=== PATIENT | female | born 1935 | race Caucasian/White ===

== ENCOUNTER → 2017-03-25 | Outpatient (CLI) | payer MEDICARE ==
--- NOTE | 2017-03-25 23:00 | WWHP ---
[facility] - HISTORY AND PHYSICAL DATE OF SERVICE: 03/25/2017 CHIEF COMPLAINT: Patient is here for her routine gynecologic exam and mammogram. HPI: This is an 81-year-old, G 3, P 3, with an LMP of 1987. She is status post vaginal hysterectomy for benign reasons. She continues to use low-dose ERT for hot flashes. She also states they help her to sleep. She is otherwise without gynecologic complaints. PAST MEDICAL HISTORY: Chronic hypertension, arthritis and mildly elevated cholesterol. MEDICATIONS: 1. Nifedipine 30 mg daily. 2. Estradiol 0.5 mg one 3 times weekly. 3. Hydrochlorothiazide 25 mg daily. 4. Calcium supplement with vitamin D3 600 mg b.i.d. 5. Glucosamine 1500 mg daily. 6. Fish oil supplement daily. 7. Multivitamin 1 daily. ALLERGIES: TYLENOL #3 AND ADHESIVE TAPES. The past surgical and [employer] histories are unchanged from the 2015 H&P. SOCIAL HISTORY: She denies tobacco and drug use and has 0-2 alcohol containing drinks per week. She is but is not sexually active. FAMILY HISTORY: Sister was diagnosed with breast cancer. She also has a paternal aunt and paternal grandmother who had breast cancer. Brother had colon cancer. Father had diabetes and skin cancer and heart disease. REVIEW OF SYSTEMS: Weight has been stable. She denies respiratory, cardiac or GI problems. She denies maltreatment or falling. : She denies any significant problems with urinary leakage but does get up 2 times each night to urinate. PHYSICAL EXAM: Blood pressure 129/72, height 5 feet 2.5 inches, weight 121 pounds. Temperature 98, pulse 87, this is a well-developed, well-nourished, white female, who is alert and oriented times three. In no acute distress. HEENT: Within normal limits. NECK: Supple without mass or thyromegaly. Chest. LUNGS: Clear to auscultation. HEART: Regular rate, rhythm. Breasts are without mass or discharge. Axillary exam is negative for adenopathy. Back negative for CVA tenderness. ABDOMEN: Soft, nontender, without palpable masses. Pelvic exam external genitalia reveals [id number] atrophy without lesions. Vagina reveals [id number]-rd-[id number] atrophy without lesions. There is no evidence of prolapse. Bimanual exam is negative for mass or tenderness. Rectovaginal exam is negative for mass or tenderness and is negative for occult blood. EXTREMITIES: Nontender. IMPRESSION: 1. 81-year-old, menopausal female, who is status post vaginal hysterectomy for benign reasons with normal gynecologic exam. 2. The patient is on low-dose ERT for vasomotor symptoms. PLAN: 1. Pap smears have been discontinued. 2. Self breast examination was discussed. 3. Mammogram will be done today. 4. We again had a long discussion regarding the ERT and the increased risk for stroke and blood clots. I have stressed the importance of weaning off of this as soon as possible. She states she will try to wean off of this. 5. Screening colonoscopy was recommended since it has been more than 10 years since her last one. She states she will see Dr. Lorenzo for this. 6. Osteoporosis prevention was discussed. She did have a normal bone density test done last year and we will plan on repeating this in approximately 2 years ago. 7. She states she does get flu shots in the fall and will do this when it is available. 8. She will return in one year. MMODL / IJN: [id number] /
--- NOTE | 2017-03-26 10:45 | MM ---
Reason for exam: screening (asymptomatic). Last mammogram was performed 1 year ago. History: Patient is postmenopausal and has history of other cancer at age 74. Family history of breast cancer in paternal grandmother and breast cancer in paternal aunt. Benign excisional biopsy of the left breast. Taking estrogen for 20 years 7 months beginning at age 53. Taking progesterone for 20 years 7 months beginning at age 53. Physical Findings: A clinical breast exam by your physician is recommended on an annual basis and results should be correlated with mammographic findings. MG 3D Screening Mammo W/Cad Bilateral CC and MLO view(s) were taken. Prior study comparison: March 19, 2016, bilateral MG 3d screening mammo w/cad. February 22, 2015, bilateral MG screening mammo w CAD. There are scattered fibroglandular densities. Stable benign calcifications. There is chronic nodularity in the left breast. No significant changes when compared with prior studies. ASSESSMENT: Benign, BI-RAD 2 RECOMMENDATION: Routine screening mammogram of both breasts in 1 year.
== END | disposition home or self-care (01) ==
LOC: WWCWWP 09:15
PROVIDERS: ATTEND Obstetrics & Gynecology
DX: Z12.31 Encounter for screening mammogram for malignant neoplasm of breast (principal)
CPT/HCPCS: 77063; G0202

== ENCOUNTER → 2018-04-01 | Outpatient (CLI) | payer MEDICARE ==
[2018-04-01 11:10] VITALS: BP 161/71; TEMP 96.6; BMI 21.9
--- NOTE | 2018-04-01 11:49 | P.HPOB ---
History of Present Illness H&P Date: 04/01/18 Chief Complaint: The patient is here for her routine gynecologic exam and mammogram. This is an 82-year-old G3 PIII with an LMP of 1987. The patient is status post vaginal hysterectomy for benign reasons. She has weaned off of ERT during the past year. She stopped altogether in July, but because of hot flashes, she used low-dose ERT again for 5 months. She stops and has been off of ERT since January. She has been having some hot flashes and also notices her skin and hair seem primer expeditor and drier. Review of Systems Weight has been stable. She denies respiratory, cardiac and G.I. problems. She denies maltreatment or problems with falling. : she denies any significant problems with urinary leakage. Past Medical History Past Medical History: Hyperlipidemia, Hypertension Additional Past Medical History / Comment(s): Arthritis. PAST [employer] HISTORY: She has no history of STDs. She is status post vaginal hysterectomy for prolapse. 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 Colonoscopy 2005. Past Psychological History: No Psychological Hx Reported Smoking Status: Never smoker Past Alcohol Use History: Occasional (0-1 per week) Past Drug Use History: None Reported Additional History: She is and is not sexually active. - Past Family History Sister(s) Family Medical History: Cancer (Breast) Father Family Medical History: Cancer (Skin), Diabetes Mellitus Additional Family Medical History / Comment(s): Heart disease. Paternal aunt and paternal grandmother had breast cancer. Brother(s) Family Medical History: Cancer (Colon cancer) Medications and Allergies Home Medications Medication Instructions Recorded Confirmed Type Calcium Carbonate [Calcium] PO BID 04/01/18 History Glucosamine Sulfate 1,500 PO DAILY 04/01/18 History Hydrochlorothiazide PO DAILY 04/01/18 History NIFEdipine [Procardia XL] PO DAILY 04/01/18 History Allergies Allergy/AdvReac Type Severity Reaction Status Date / Time acetaminophen AdvReac Severe Rash/Hives Unverified 04/01/18 11:05 [From Tylenol-Codeine #3] codeine AdvReac Severe Rash/Hives Unverified 04/01/18 11:05 [From Tylenol-Codeine #3] Exam Vital Signs Temp BP 04/01/18 11:07 96.6 F L 161/71 Intake and Output 03/31/18 04/01/18 04/01/18 22:59 06:59 14:59 Other: Weight 54.431 kg Height 5'2", BMI 21.9, pulse 79. This is a well-developed well-nourished white female who is alert and oriented times 3 in no acute distress. HEENT: Within normal limits. NECK: Supple without mass or thyromegaly. CHEST AND LUNGS: Clear to auscultation. HEART: Regular rate and rhythm. BREASTS: Are without mass or discharge. AXILLARY EXAM: Negative for adenopathy. BACK: Negative for CVA tenderness. ABDOMEN: Soft, nontender, without palpable masses. PELVIC EXAM: External genitalia appears normal with mild atrophy. Vagina appears normal mild atrophy. There is no evidence of prolapse. Bimanual examination is negative for mass or tenderness. RECTAL EXAM: Rectovaginal exam is negative for mass or tenderness and is negative for occult blood. EXTREMITIES: Nontender. IMPRESSION: 1. 82 year old female status post vaginal hysterectomy for benign reasons with normal gynecologic exam. 2. The patient has recently weaned off of ERT and has mild vasomotor symptoms. PLAN: 1. Pap smears have been discontinued. 2. Self breast awareness was discussed with the patient. 3. Screening Mammogram will be done today. 4. Osteoporosis prevention was discussed. She had a normal bone density test on 02/22/2015. Will plan on repeating this approximately in the year 2020. 5. She plans to get a flu shot in the near future. 6. I have recommended screening colonoscopy since it has been about 12 years since her last one. She will talk to Dr. Oliveira about this. 7. She will return in one year.
--- NOTE | 2018-04-02 15:09 | MM ---
Reason for exam: screening (asymptomatic). Last mammogram was performed 1 year ago. History: Patient is postmenopausal and has history of other cancer at age 74. Family history of breast cancer in paternal grandmother and breast cancer in paternal aunt. Benign excisional biopsy of the left breast. Taking estrogen for 20 years 7 months beginning at age 53. Taking progesterone for 20 years 7 months beginning at age 53. Physical Findings: A clinical breast exam by your physician is recommended on an annual basis and results should be correlated with mammographic findings. MG 3D Screening Mammo W/Cad Bilateral CC and MLO view(s) were taken. Prior study comparison: March 25, 2017, bilateral MG 3d screening mammo w/cad. March 19, 2016, bilateral MG 3d screening mammo w/cad. There are scattered fibroglandular densities. There is no discrete abnormality. No significant changes when compared with prior studies. ASSESSMENT: Negative, BI-RAD 1 RECOMMENDATION: Routine screening mammogram of both breasts in 1 year.
== END ==
LOC: WWCWWP 10:30
PROVIDERS: ATTEND Obstetrics & Gynecology
DX: Z12.31 Encounter for screening mammogram for malignant neoplasm of breast (principal)
CPT/HCPCS: 77063; 77067

== ENCOUNTER → 2018-04-20 | Outpatient (CLI) | payer MEDICARE ==
[2018-04-20 08:23] LABS: Basophils # (A) 0.1 k/uL (0-0.2); Basophils % (A) 1 %; Eosinophils # (A) 0.2 k/uL (0-0.7); Eosinophils % (A) 3 %; HCT 39.1 % (34.0-46.0); HGB 13.1 gm/dL (11.4-16.0); Lymphocytes # (A) 2.2 k/uL (1.0-4.8); Lymphocytes % (A) 38 %; MCH 30.3 pg (25.0-35.0); MCHC 33.4 g/dL (31.0-37.0); MCV 90.5 fL (80.0-100.0); Mean Platelet Volume 6.4; Monocytes # (A) 0.4 k/uL (0-1.0); Monocytes % (A) 7 %; Neutrophils # (A) 2.8 k/uL (1.3-7.7); Neutrophils % (A) 49 %; Platelet Count 246 k/uL (150-450); RBC 4.32 m/uL (3.80-5.40); RDW 14.1 % (11.5-15.5); WBC 5.6 k/uL (3.8-10.6)
[2018-04-20 09:00] LABS: ALT 21 U/L (9-52); AST 32 U/L (14-36); Albumin 4.6 g/dL (3.5-5.0); Alkaline Phosphatase 66 U/L (38-126); Anion Gap 10 mmol/L; Blood Urea Nitrogen 13 mg/dL (7-17); Calcium 9.9 mg/dL (8.4-10.2); Carbon Dioxide 29 mmol/L (22-30); Chloride 102 mmol/L (98-107); Cholesterol 215 mg/dL (<200); Glucose 89 mg/dL (74-99); HDL Cholesterol 105 mg/dL (40-60); LDL Cholesterol,Calculated 87 mg/dL (0-99); Potassium 3.7 mmol/L (3.5-5.1); Sodium 141 mmol/L (137-145); Total Bilirubin 0.5 mg/dL (0.2-1.3); Total Protein 8.1 g/dL (6.3-8.2); Triglycerides 114 mg/dL (<150)
[2018-04-20 10:57] LABS: Appearance,Urine Clear (Clear); Bilirubin,Urine Negative (Negative); Blood,Urine Negative (Negative); Color,Urine Yellow; Glucose,Urine (UA) Negative (Negative); Ketones,Urine Negative (Negative); Leukocyte Esterase,Urine Small (Negative); Mucus,Urine Rare /hpf; Nitrite,Urine Negative (Negative); Protein,Urine Negative (Negative); RBC,Urine <1 /hpf (0-5); Specific Gravity,Urine 1.009 (1.001-1.035); Squamous Epithelial Cell,Urine 1 /hpf (0-4); Urobilinogen,Urine <2.0 mg/dL (<2.0); WBC,Urine 1 /hpf (0-5)
== END | disposition home or self-care (01) ==
LOC: LABWHC1 07:46
PROVIDERS: ATTEND Internal Medicine
DX: I10 Essential (primary) hypertension (principal); E55.9 Vitamin D deficiency, unspecified
CPT/HCPCS: 36415; 80053; 80061; 81001; 82306; 85025

== ENCOUNTER 2018-08-01 12:28 | Observation (INO) | payer MEDICARE ==
--- NOTE | 2018-08-01 12:52 | ED ---
Chest Pain HPI - General Chief Complaint: Chest Pain Stated Complaint: abn EKG Time Seen by Provider: 08/01/18 12:32 Source: patient Mode of arrival: ambulatory Limitations: no limitations - History of Present Illness Initial Comments: A 83-year-old female past medical history of hypertension, HLD and family history of coronary artery disease presenting today for chief complaint of chest pain. Patient states that at 8:00 this morning she had a pain in her chest that went from right side to left and into the back that lasted for about 2 minutes. She states at that time she chewed a 325 mg aspirin and presented to the [facility] a few hours later. She states since the symptoms have subsided she has not experienced additional symptoms. Patient did mention she was diaphoretic at the time of chest pain. Patient denies any dyspnea, dyspnea on exertion nausea, vomiting, bowel pain, epigastric pain, dizziness, palpitations, leg swelling, calf pain, recent travel, hemoptysis, history of pulmonary embolus him, history of valvular disease, or experiencing these symptoms in the past. Pt denies smoking history. No recent surgical history. Pt states that at the clinic and EKG was obtained. She states they did not notice any EKG changes, but given history, age and RF that instructed patient to present to the emergency department for evaluation. Upon arrival pt is well appearing, no signs of acute distress. No respiratory distress. Pt VS revealed elevated BP reading remainder of VS unremarkable. (-) Levign sign. Pt denies any current symptoms. - Related Data Home Medications Medication Instructions Recorded Confirmed Calcium Carbonate [Calcium] PO BID 04/01/18 Glucosamine Sulfate 1,500 PO DAILY 04/01/18 Hydrochlorothiazide PO DAILY 04/01/18 NIFEdipine [Procardia XL] PO DAILY 04/01/18 Allergies Allergy/AdvReac Type Severity Reaction Status Date / Time acetaminophen AdvReac Severe Rash/Hives Unverified 08/01/18 12:37 [From Tylenol-Codeine #3] codeine AdvReac Severe Rash/Hives Unverified 08/01/18 12:37 [From Tylenol-Codeine #3] Review of Systems ROS Statement: Those systems with pertinent positive or pertinent negative responses have been documented in the HPI. ROS Other: All systems not noted in ROS Statement are negative. EKG Findings - EKG Comments: EKG Findings:: A 12-lead EKG was performed and shows the following: Rate is 83bpm, and rhythm is normal sinus. There are normal QRS complexes and normal R- wave progression. ST segments have no elevation or depression, and MS segments appear normal. Interpretted by myself and Dr. Silva. Second EK. A 12 -lead EKG was performed and shows the following: Rate is 83bpm, and rhythm is normal sinus. There are normal QRS complexes and normal R-wave progression. ST segments have no elevation or depression, and MS segments appear normal. 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 Colonoscopy 2005. Past Psychological History: No Psychological Hx Reported Smoking Status: Never smoker Past Alcohol Use History: Occasional Past Drug Use History: None Reported - Past Family History Sister(s) Family Medical History: Cancer (Breast) Father Family Medical History: Cancer (Skin), Diabetes Mellitus Additional Family Medical History / Comment(s): Heart disease. Paternal aunt and paternal grandmother had breast cancer. Brother(s) Family Medical History: Cancer (Colon cancer) General Exam - General Exam Comments Initial Comments: General: The patient is awake and alert, in no distress, and does not appear acutely ill. Eye: +2 mm pupils are equal, round and reactive to light, extra-ocular movements are intact. No nystagmus. There is normal conjunctiva bilaterally. No signs of icterus. Ears, nose, mouth and throat: There are moist mucous membranes and no oral lesions. Oropharynx nonerythematous. Neck: The neck is supple, there is no tenderness or JVD. Cardiovascular: There is a regular rate and rhythm. No audible murmur, rub or gallop is appreciated. Respiratory: Lungs are clear to auscultation, respirations are non-labored, breath sounds are equal. No wheezes, stridor, rales, or rhonchi. Gastrointestinal: Soft, non-distended, non-tender abdomen without masses or organomegaly noted. Epigastric pain. There is no rebound or guarding present. No CVA tenderness. Bowel sounds are unremarkable. Musculoskeletal: Normal ROM, no tenderness. Strength 5/5. Sensation intact. Radial and DP pulses equal bilaterally 2+. Neurological: A&O x 3. CN II-XII intact, There are no obvious motor or sensory deficits. Coordination appears grossly intact. Speech is normal. Skin: Skin is warm and dry and no rashes or lesions are noted. No lower extremity edema. Psychiatric: Cooperative, appropriate mood & affect, normal judgment. Limitations: no limitations Course Vital Signs 08/01/18 08/01/18 08/01/18 12:34 13:00 13:30 Temperature 97.8 F Pulse Rate 73 88 84 Respiratory 18 15 16 Rate Blood Pressure 168/68 158/87 153/77 O2 Sat by Pulse 99 98 98 Oximetry Chest Pain MDM - MDM 83yo with 2 minutes of CP and diaphoresis this morning that radiated toward back. No currents symptoms. Initial EKG WNL. No ST elevation/depression, intervals WNL and no axis deviation. With cc of upper back pain accompanying chest pain aortic dissection on ddx along with ACS- CTA obtained. CXR within normal limits, without cardiomegaly,evidence of pleural effusion, or focal consolidations. No abdominal pain on exam. Laboratory values within acceptable limits. CTA (-) for PE or dissection, acute cardiopulmonary process. Heart score 4-5. At this time given HEART score and chest pain concerning for possible underlying cardiac etiology I feel pt should be admitted for serial troponins in observation on telemetry. Pt agreedable with plan and admission. All questions discussed and answered to the best of my ability, I did discussed findings with patient. Attending provider Dr. Silva spoke with admitting provider Dr. Cruz. pt remains asymptomatic and well appearing. transferred to floor in stable condition. - Wells Criteria Clinical Symptoms of DVT: (0) No No Alternative Diagnosis: (0) No Immobilization of Surgery in Previous 4 Weeks: (0) No Previous DVT/PE: (0) No Hemoptysis: (0) No Malignancy: (1.0) Yes (skin cancer, with complete removal) - SUMMER Score Age > 65: (1) Yes 3 or more CAD Risk Factors: (1) Yes Known CAD with more than 50% Stenosis: (0) No Aspirin use within the Past 7 Days: (1) Yes ST Deviation Greater than 0.5mm: (0) No Disposition Clinical Impression: Chest pain Disposition: ADMITTED IP TO THIS HOSP Condition: Good Instructions: Chest Pain (ED) Is patient prescribed a controlled substance at d/c from ED?: No Referrals: Adam Oliveira MD [Primary Care Provider] - 1-2 days Time of Disposition: 14:15 Decision to Admit Reason: Admit from EC Decision Date: 08/01/18 Decision Time: 14:16
[2018-08-01 13:12] LABS: Basophils % (A) 1 %; Eosinophils # (A) 0.1 k/uL (0-0.7); Eosinophils % (A) 1 %; HCT 37.9 % (34.0-46.0); HGB 12.9 gm/dL (11.4-16.0); Lymphocytes % (A) 30 %; MCH 31.4 pg (25.0-35.0); MCHC 34.2 g/dL (31.0-37.0); MCV 91.8 fL (80.0-100.0); Mean Platelet Volume 6.7; Monocytes # (A) 0.4 k/uL (0-1.0); Monocytes % (A) 6 %; Neutrophils # (A) 3.8 k/uL (1.3-7.7); Neutrophils % (A) 59 %; Platelet Count 256 k/uL (150-450); RBC 4.13 m/uL (3.80-5.40); RDW 13.4 % (11.5-15.5); WBC 6.5 k/uL (3.8-10.6)
--- NOTE | 2018-08-01 13:19 | XR ---
EXAMINATION TYPE: XR chest 2V DATE OF EXAM: 08/01/2018 HISTORY: Chest Pain. REFERENCE: NONE. FINDINGS: The lungs are clear. Pleural spaces are clear. The heart is not enlarged. IMPRESSION: NO ACUTE CARDIOPULMONARY ABNORMALITY.
[2018-08-01 13:23] LABS: INR 0.9 (<1.2); Partial Thromboplastin Time 25.9 sec (22.0-30.0); Prothrombin Time 9.6 sec (9.0-12.0)
[2018-08-01 13:25] LABS: ALT 28 U/L (9-52); AST 34 U/L (14-36); Albumin 4.6 g/dL (3.5-5.0); Alkaline Phosphatase 66 U/L (38-126); Anion Gap 7 mmol/L; Blood Urea Nitrogen 21 mg/dL (7-17); Calcium 10.6 mg/dL (8.4-10.2); Carbon Dioxide 29 mmol/L (22-30); Chloride 102 mmol/L (98-107); Glucose 94 mg/dL (74-99); Magnesium 1.9 mg/dL (1.6-2.3); Potassium 3.9 mmol/L (3.5-5.1); Sodium 138 mmol/L (137-145); Total Bilirubin 0.8 mg/dL (0.2-1.3); Total Protein 7.9 g/dL (6.3-8.2)
[2018-08-01 13:46] LABS: Creatine Kinase 70 U/L (30-135)
[2018-08-01 13:59] LABS: Creatine Kinase MB 0.6 ng/mL (0.0-2.4); Troponin I <0.012 ng/mL (0.000-0.034)
--- NOTE | 2018-08-01 13:59 | CT ---
EXAMINATION TYPE: CT angio chest DATE OF EXAM: 08/01/2018 1:49 PM COMPARISON: None. HISTORY: Chest pain radiating to the back CT DLP: 188.10 mGycm Automated exposure control for dose reduction was used. CONTRAST: CTA scan of the thorax is performed with IV Contrast, patient injected with 100 mL of Isovue 370, pul monary embolism protocol. . FINDINGS: There is apical scarring present bilaterally. The lungs are otherwise clear. There is some shotty axillary adenopathy. There is no significant internal mammary or mediastinal kodi nopathy. There is a questionable 12 mm lymph node in the right hilum. There is no evidence of pulmonary embolus. The aorta is normal in caliber without evidence of dissection. There is no pleural or pericardial fluid. The heart is not enlarged. Visualized portions of the upper abdomen are unremarkable. There is minimal hypertrophic spondylosis within the spine. IMPRESSION: 1. THIS EXAMINATION IS NEGATIVE FOR PULMONARY EMBOLUS. 2. MINIMAL DEGENERATIVE CHANGE WITHIN THE SPINE.
[2018-08-01] MEDS ORDERED: SODIUM CHLORIDE 0.9% 1,000 ML IV SCH (14:30)
[2018-08-01] MEDS ORDERED: ENOXAPARIN 40 MG/0.4 ML SYRINGE SQ SCH (23:00)
--- NOTE | 2018-08-02 00:34 | HP ---
HISTORY AND PHYSICAL DATE OF ADMISSION: 08/01/2018. DATE OF SERVICE: 08/01/2018. PRESENTING COMPLAINT: Chest pressure. HISTORY OF PRESENTING COMPLAINT: This is a very pleasant 83-year-old patient of Dr. Adam Oliveira. Chronic stable medical conditions include hypertension, hyperlipidemia, osteoarthritis. This morning during breakfast her leg started aching and she just kind of felt warm. Then she felt a pressure across the chest and back. She started perspiring and became clammy. There was no dizziness. No lightheadedness. She did not feel good and told her to call 911. She presented to the ER. Initial EKG was unremarkable. Troponin was negative. The patient is feeling better. Pulmonary embolism was ruled out. She was admitted for further cardiac workup. Feeling better when I saw her. REVIEW OF SYSTEMS: CONSTITUTIONAL: Tired. HEENT: None. CARDIOVASCULAR: As above GASTROINTESTINAL: None. MUSCULOSKELETAL: Pain in different joints. DERMATOLOGICAL, HEMATOLOGIC, LYMPHATIC: None. PSYCHIATRY: None. NEUROLOGICAL: None. MUSCULOSKELETAL: Charley horses. PAST MEDICAL HISTORY: Hyperlipidemia, hypertension, osteoarthritis. PAST SURGICAL HISTORY: Hysterectomy, neurofibroma removed for the back in 2006. SOCIAL HISTORY: No smoking. Alcohol occasionally. . FAMILY HISTORY: Heart disease and breast cancer. HOME MEDICATIONS: 1. Procardia XL 30 mg a day. 2. Hydrochlorothiazide 25 mg a day. 3. Calcium 600 mg b.i.d. 4. Glucosamine sulfate. ALLERGY: TYLENOL 3. PHYSICAL EXAMINATION: Temperature 98.2, pulse 87, respirations 15, blood pressure 108/56, pulse ox 97% on room air. GENERAL APPEARANCE: Thin built, sitting up, comfortable. EYES: Pupils equal. Conjunctivae normal. HEENT: External appearance of nose and ears normal. NECK: Supple. JVD not raised. Mass not palpable. Respiratory effort normal. LUNGS: Fair air entry. CARDIOVASCULAR: First and second sounds normal. No edema. ABDOMEN: Soft, nontender. Liver and spleen not palpable. LYMPHATIC: No lymph nodes palpable in the neck, axillae, or groin. PSYCHIATRY: Alert and oriented x3. Mood and affect normal. NEUROLOGIC: Pupils equal. Cranial nerves grossly intact. Power and sensation grossly intact. MUSCULOSKELETAL: Evidence of osteoarthritis, especially in the hands. INVESTIGATIONS: White count 6.5, hemoglobin 12.9, potassium 3.9. Troponin less than 0.012 x 2. EKG tracing personally reviewed by me, shows normal sinus rhythm, no ST-segment changes. Chest x-ray film personally reviewed by me shows no infiltrates. ASSESSMENT: 1. This patient presented with chest pain with some cardiac manifestations. Patient's cardiac risk factors include hypertension, hyperlipidemia, and her age. Initial troponins have been negative. 2. Essential hypertension. 3. Primary osteoarthritis. PLAN: Serial cardiac enzymes in place. The patient is on aspirin. Currently feeling better. Cardiology was consulted. The patient will need a stress test stress. Care was discussed with the patient. Questions were answered. MMODL / IJN: [id number] /
[2018-08-02 04:16] VITALS: RESP 16
[2018-08-02] MEDS ORDERED: ASPIRIN 81 MG PO SCH (09:00)
[2018-08-02] MEDS ORDERED: HYDROCHLOROTHIAZIDE 25 MG TAB PO SCH (09:00)
[2018-08-02] MEDS ORDERED: NIFEdipine XL 30 MG TAB.ER.24 PO SCH (09:00)
--- NOTE | 2018-08-02 10:31 | P.CRDCN ---
History of Present Illness Consult date: 08/02/18 Chief complaint: Chest pain History of present illness: This is a pleasant 83-year-old female patient with a past medical history significant for hypertension and dyslipidemia who presented to the hospital complaining of chest discomfort. The patient was in her usual state of health until yesterday morning when she was sitting eating her breakfast and started experiencing discomfort in the chest, as a pressure, without any radiation to the arm or neck or shoulders, but it was associated with clammy feeling and sweating, and lasted for about 2 minutes only. Since then the patient has been chest pain-free. She has been chest pain-free during her hospitalization. The patient is not aware of any prior history of coronary artery disease and she never seen a offal separator in the past. She does have hypertension and dyslipidemia. She does not smoke. The EKG showed sinus rhythm without any ST or T-wave abnormalities. The cardiac enzymes were checked and came in to be unremarkable. Eating her risk factors as well as her age, I did recommend proceeding with a stress test to rule out any severe underlying coronary artery disease. The patient does not want to stay to tomorrow to have the stress test done so I am going to discharge the patient home and I will follow-up with her in the office as an outpatient and schedule a stress test as an outpatient. 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 Colonoscopy 2005. Past Anesthesia/Blood Transfusion Reactions: No Reported Reaction Additional Past Anesthesia/Blood Transfusion Reaction / Comment(s): pt states she has never had a blood transfusion. Past Psychological History: No Psychological Hx Reported Smoking Status: Never smoker Past Alcohol Use History: Occasional Past Drug Use History: None Reported - Past Family History Sister(s) Family Medical History: Cancer Father Family Medical History: Cancer, Diabetes Mellitus Additional Family Medical History / Comment(s): Heart disease. Paternal aunt and paternal grandmother had breast cancer. Brother(s) Family Medical History: Cancer Medications and Allergies Home Medications Medication Instructions Recorded Confirmed Type Calcium Carbonate [Calcium] 600 mg PO BID 04/01/18 08/01/18 History Glucosamine Sulfate 1,500 PO DAILY 04/01/18 History Hydrochlorothiazide 25 mg PO DAILY 04/01/18 08/01/18 History NIFEdipine [Procardia XL] 30 mg PO DAILY 04/01/18 08/01/18 History Allergies Allergy/AdvReac Type Severity Reaction Status Date / Time acetaminophen AdvReac Severe Rash/Hives Verified 08/01/18 14:45 [From Tylenol-Codeine #3] codeine AdvReac Severe Rash/Hives Verified 08/01/18 14:45 [From Tylenol-Codeine #3] Physical Exam Vitals: Vital Signs Temp Pulse Pulse Pulse Resp BP BP 08/02/18 08:00 97.9 F 71 16 119/64 08/02/18 04:00 97.6 F 75 16 145/76 08/01/18 23:33 14 08/01/18 23:26 98.0 F 83 14 146/75 08/01/18 20:00 15 08/01/18 19:16 98.2 F 80 15 118/66 08/01/18 15:00 98.1 F 100 16 158/76 08/01/18 14:30 98.2 F 73 18 143/72 08/01/18 14:00 77 16 153/77 08/01/18 13:30 84 16 153/77 08/01/18 13:00 88 15 158/87 08/01/18 12:34 97.8 F 73 18 168/68 Pulse Ox 08/02/18 08:00 100 08/02/18 04:00 97 08/01/18 23:33 08/01/18 23:26 98 08/01/18 20:00 08/01/18 19:16 97 08/01/18 15:00 97 08/01/18 14:30 97 08/01/18 14:00 97 08/01/18 13:30 98 08/01/18 13:00 98 08/01/18 12:34 99 Intake and Output 08/01/18 08/02/18 08/02/18 22:59 06:59 14:59 Other: Voiding Method Toilet Toilet Toilet # Voids 1 1 Weight 54.431 kg - Constitutional General appearance: no acute distress - Respiratory Respiratory: bilateral: CTA - Cardiovascular Rhythm: regular Heart sounds: normal: S1, S2 Abnormal Heart Sounds: systolic murmur Results 08/01/18 13:02 08/01/18 13:02 Cardiac Enzymes 08/01/18 08/01/18 08/01/18 Range/Units 13:02 13:02 19:00 AST 34 (14-36) U/L CK-MB (CK-2) 0.6 (0.0-2.4) ng/mL Troponin I <0.012 <0.012 (0.000-0.034) ng/mL 08/02/18 Range/Units 01:33 AST (14-36) U/L CK-MB (CK-2) (0.0-2.4) ng/mL Troponin I <0.012 (0.000-0.034) ng/mL Coagulation 08/01/18 Range/Units 13:02 PT 9.6 (9.0-12.0) sec APTT 25.9 (22.0-30.0) sec CBC 08/01/18 Range/Units 13:02 WBC 6.5 (3.8-10.6) k/uL RBC 4.13 (3.80-5.40) m/uL Hgb 12.9 (11.4-16.0) gm/dL Hct 37.9 (34.0-46.0) % Plt Count 256 (150-450) k/uL Comprehensive Metabolic Panel 08/01/18 Range/Units 13:02 Sodium 138 (137-145) mmol/L Potassium 3.9 (3.5-5.1) mmol/L Chloride 102 (98-107) mmol/L Carbon Dioxide 29 (22-30) mmol/L BUN 21 H (7-17) mg/dL Creatinine 0.62 (0.52-1.04) mg/dL Glucose 94 (74-99) mg/dL Calcium 10.6 H (8.4-10.2) mg/dL AST 34 (14-36) U/L ALT 28 (9-52) U/L Alkaline Phosphatase 66 (38-126) U/L Total Protein 7.9 (6.3-8.2) g/dL Albumin 4.6 (3.5-5.0) g/dL Current Medications Generic Name Dose Route Start Last Admin Trade Name Freq PRN Reason Stop Dose Admin Aspirin 81 mg 08/02/18 09:00 Aspirin PO DAILY RODERICK Enoxaparin Sodium 40 mg 08/01/18 23:00 08/01/18 23:38 Lovenox SQ 40 mg Q24H RODERICK Administration Hydrochlorothiazide 25 mg 08/02/18 09:00 Hydrodiuril PO DAILY RODERICK Sodium Chloride 1,000 mls @ 50 mls/hr 08/01/18 14:30 08/01/18 19:27 Saline 0.9% IV Not Given .Q20H RODERICK Nifedipine 30 mg 08/02/18 09:00 Procardia Xl PO DAILY RODERICK Intake and Output 08/01/18 08/02/18 08/02/18 22:59 06:59 14:59 Other: Voiding Method Toilet Toilet Toilet # Voids 1 1 Weight 54.431 kg 08/01/18 13:02 08/01/18 13:02 Assessment and Plan Assessment: Assessment #1 chest discomfort. #2 hypertension #3 dyslipidemia Plan #1 the patient was ruled out for acute coronary event #2 currently she is chest pain-free #3 I would get the patient up and around, if she is chest pain-free, she might be able to be discharged home and I will follow-up with her in the office as an outpatient Thank you for allowing us participate in her care and we will continue following up with the patient as an outpatient
[2018-08-02 11:43] VITALS: BP 134/74; PULSE 85; TEMP 98
--- NOTE | 2018-08-03 01:11 | DS ---
DISCHARGE SUMMARY DATE OF ADMISSION: 08/01/2018 DATE OF DISCHARGE: 08/02/2018 FINAL DIAGNOSES: 1. Anterior chest wall pain, possible angina. 2. Essential hypertension. 3. Primary osteoarthritis. HOSPITAL COURSE: This patient with cardiac risk factors, presented with chest pain, troponins were negative. EKG is unremarkable. The patient is seen by Dr. Sandra, okayed the patient to be discharged. He will see the patient outpatient for a stress test. The patient otherwise has been symptom-free. Up and about. The patient was negative for PE. PHYSICAL EXAMINATION: Temperature 98, pulse 75, respirations 16, blood pressure 134/74. Pulse ox 97% on room air. Lungs are clear. Cardiovascular: First and second sounds normal. Troponin x3 negative. DISCHARGE MEDICATIONS: 1. Aspirin 81 mg a day. 2. Lopressor 12.5 p.o. b.i.d. new medication. 3. Nitrostat 0.4 sublingual q.5 p.r.n. new medication. 4. Discontinued is hydrochlorothiazide, Procardia XL. Follow with Dr. Sandra in 1 week for a stress test. Follow up with Dr. Adam Oliveira in [address] Oliveira. MMEMILIOL / IJN: [id number] /
== END 2018-08-02 15:55 | disposition home or self-care (01) ==
LOC: EC 12:28 → 1SOBS 14:43
PROVIDERS: ADMIT Hospitalist; ATTEND Hospitalist
DX: R07.89 Other chest pain (principal); M54.6 Pain in thoracic spine; M79.606 Pain in leg, unspecified; R23.1 Pallor; M19.042 Primary osteoarthritis, left hand; M19.041 Primary osteoarthritis, right hand; R61 Generalized hyperhidrosis; R01.1 Cardiac murmur, unspecified; R94.31 Abnormal electrocardiogram [ECG] [EKG]; I10 Essential (primary) hypertension; E78.5 Hyperlipidemia, unspecified; M19.91 Primary osteoarthritis, unspecified site; Z79.899 Other long term (current) drug therapy; Z88.5 Allergy status to narcotic agent; Z85.828 Personal history of other malignant neoplasm of skin; Z82.49 Family history of ischemic heart disease and other diseases of the circulatory system; Z80.3 Family history of malignant neoplasm of breast; Z83.3 Family history of diabetes mellitus; Z80.8 Family history of malignant neoplasm of other organs or systems; Z80.0 Family history of malignant neoplasm of digestive organs
CPT/HCPCS: 96372; 99285; 36415; 93005; 83880; 80053; 82550; 82553; 83735; 84484 ×2; 85025; 85610; 85730; 71046; 71275; G0378 ×2; J1650; Q9967

== ENCOUNTER → 2018-08-18 | Outpatient (CLI) | payer MEDICARE ==
--- NOTE | 2018-08-18 13:13 | ECHOS ---
STRESS ECHOCARDIOGRAM DATE OF SERVICE: 08/18/2018 INDICATIONS: Chest pain. MEDICATIONS: BASELINE HEART RATE: 91 BASELINE BLOOD PRESSURE: 145/49 MAXIMUM HEART RATE: 156 MAXIMUM BLOOD PRESSURE: 166/74 85% MPHR: 117 100% MPHR: 138 METS: 4.6 MAXIMUM STAGE REACHED: I TOTAL EXERCISE TIME: 3 minutes CLINICAL INFORMATION: The patient was exercised for a total period of 3 minutes. Peak heart rate of 156 was achieved. The maximum blood pressure of 166/74 mmHg was noted. This test was terminated because patient got short of breath. Resting EKG shows normal sinus rhythm with normal AK interval and QRS duration and normal ST-T waves. No ST-segment depression suggestive of ischemia was noted. Occasional PVCs were noted. The baseline echocardiographic images reveal normal left ventricular chamber size with normal left ventricular systolic function. In the immediate postexercise period, normal increase in the wall thickness and contractility is noted. FINAL IMPRESSION: 1. This stress echocardiographic study is negative for stress-induced ischemia. 2. EKG portion of the stress test is not suggestive of ischemia. 3. Occasional PVCs and PACs were noted. MMODL / IJN: [id number] /
== END | disposition home or self-care (01) ==
LOC: RADNMMAIN 09:42
PROVIDERS: ATTEND Internal Medicine
DX: R07.9 Chest pain, unspecified (principal)
CPT/HCPCS: 93351

== ENCOUNTER → 2019-04-23 | Outpatient (CLI) | payer MEDICARE ==
[2019-04-23 09:54] LABS: Basophils # (A) 0.1 k/uL (0-0.2); Basophils % (A) 1 %; Eosinophils # (A) 0.2 k/uL (0-0.7); Eosinophils % (A) 4 %; HCT 39.1 % (34.0-46.0); Lymphocytes # (A) 2.1 k/uL (1.0-4.8); Lymphocytes % (A) 36 %; MCH 31.6 pg (25.0-35.0); MCHC 33.3 g/dL (31.0-37.0); Mean Platelet Volume 5.8; Monocytes # (A) 0.4 k/uL (0-1.0); Monocytes % (A) 7 %; Neutrophils # (A) 2.9 k/uL (1.3-7.7); Neutrophils % (A) 50 %; Platelet Count 241 k/uL (150-450); RBC 4.12 m/uL (3.80-5.40); RDW 13.3 % (11.5-15.5); WBC 5.8 k/uL (3.8-10.6)
[2019-04-23 10:01] LABS: Appearance,Urine Clear (Clear); Bilirubin,Urine Negative (Negative); Blood,Urine Negative (Negative); Color,Urine Light Yellow; Glucose,Urine (UA) Negative (Negative); Ketones,Urine Negative (Negative); Leukocyte Esterase,Urine Negative (Negative); Nitrite,Urine Negative (Negative); PH, Urine 6.5 (5.0-8.0); Protein,Urine Negative (Negative); Specific Gravity,Urine 1.012 (1.001-1.035); Urobilinogen,Urine <2.0 mg/dL (<2.0)
[2019-04-23 19:22] LABS: African American GFR (CKD) 98.4 (60.0-200.0); Albumin 4.5 g/dL (3.80-4.90); Albumin/Globulin Ratio 1.96 (1.60-3.17); Anion Gap 11.3 mmol/L (4.00-12.00); BUN/Creat Ratio 33.33 Ratio (12.00-20.00); Calcium 9.4 mg/dL (8.7-10.3); Carbon Dioxide 27.7 mmol/L (21.6-31.8); Chol/HDL Ratio 1.87; Globulin 2.3 g/dL (1.6-3.3); LDL Cholesterol,Calculated 75.6 mg/dL (0.0-131.0); Potassium 4.1 mmol/L (3.5-5.5); Total Bilirubin 0.5 mg/dL (0.2-1.2); Total Protein 6.8 g/dL (6.2-8.2); VLDL Calculation 17.4 mg/dL (5.00-40.00)
== END | disposition home or self-care (01) ==
LOC: LABWHC1 09:09
PROVIDERS: ATTEND Internal Medicine
DX: I10 Essential (primary) hypertension (principal); M85.80 Other specified disorders of bone density and structure, unspecified site
CPT/HCPCS: 36415; 80053; 80061; 81003; 82306; 85025

== ENCOUNTER → 2019-05-11 | Outpatient (CLI) | payer MEDICARE ==
[2019-05-11 08:16] VITALS: BP 147/77; PULSE 95; RESP 18; TEMP 98; BMI 22.3
--- NOTE | 2019-05-11 08:56 | P.HPOB ---
History of Present Illness H&P Date: 05/11/19 Chief Complaint: The patient is here for her routine gynecologic exam and ma mmogram. This is an 83-year-old with an LMP of 1987. The patient is status post vaginal hysterectomy for benign reasons. The patient has been off ERT since January 2018. She states she is having hot flashes still during the day and night and this can be bothersome to her. Her primary care physician suggested a trial of [id number] supplements for menopausal symptoms. She is otherwise without complaints. Review of Systems Her weight has been stable. She denies respiratory, cardiac and G.I. problems. She denies maltreatment or problems with falling. : she denies any significant problems with urinary leakage. but will occasionally have a slight leak. Past Medical History Past Medical History: Hyperlipidemia, Hypertension Additional Past Medical History / Comment(s): Arthritis. 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 History of Any Multi-Drug Resistant Organisms: None Reported Past Surgical History: Hysterectomy Additional Past Surgical History / Comment(s): Vaginal hysterectomy with cystocele repair in 2007. Neurofibroma removed from her back in 2006. Colonoscopy 2005. Past Anesthesia/Blood Transfusion Reactions: No Reported Reaction Additional Past Anesthesia/Blood Transfusion Reaction / Comment(s): pt states she has never had a blood transfusion. Past Psychological History: No Psychological Hx Reported Smoking Status: Never smoker Past Alcohol Use History: Occasional (2-3 per month.) Past Drug Use History: None Reported Additional History: She is and is not sexually active. - Past Family History Sister(s) Family Medical History: Cancer, CVA/TIA Additional Family Medical History / Comment(s): Breast cancer. Father Family Medical History: Cancer, Diabetes Mellitus Additional Family Medical History / Comment(s): Skin cancer. Heart disease. Paternal aunt and paternal grandmother had breast cancer. Brother(s) Family Medical History: Cancer Additional Family Medical History / Comment(s): Colon cancer. Medications and Allergies Home Medications Medication Instructions Recorded Confirmed Type Calcium Carbonate [Calcium] 600 mg PO BID 04/01/18 05/11/19 History Glucosamine Sulfate 1,500 mg PO DAILY 04/01/18 05/11/19 History Aspirin 81 mg PO DAILY chew 08/02/18 05/11/19 Rx Metoprolol Tartrate [Lopressor] 12.5 mg PO BID #60 dose 08/02/18 05/11/19 Rx Nitroglycerin Sl Tabs [Nitrostat] 0.4 mg SUBLINGUAL Q5M PRN #25 tab 08/02/18 05/11/19 Rx Allergies Allergy/AdvReac Type Severity Reaction Status Date / Time acetaminophen AdvReac Severe Rash/Hives Verified 05/11/19 08:17 [From Tylenol-Codeine #3] codeine AdvReac Severe Rash/Hives Verified 05/11/19 08:17 [From Tylenol-Codeine #3] latex AdvReac Rash/Hives Unverified 05/11/19 08:17 Exam Vital Signs Temp Pulse Resp BP Pulse Ox 05/11/19 08:10 98.0 F 95 18 147/77 98 Intake and Output 05/10/19 05/11/19 05/11/19 22:59 06:59 14:59 Other: Weight 55.338 kg Height 5 feet 2 inches, weight 122 pounds, BMI 22.3. This is a well-developed well-nourished white female who is alert and oriented times 3 in no acute distress. HEENT: Within normal limits. NECK: Supple without mass or thyromegaly. CHEST AND LUNGS: Clear to auscultation. HEART: Regular rate and rhythm. BREASTS: Are without mass or discharge. AXILLARY EXAM: Negative for adenopathy. BACK: Negative for CVA tenderness. ABDOMEN: Soft, nontender, without palpable masses. PELVIC EXAM: External genitalia appears normal with mild atrophy. Vagina appears normal with mild atrophy. There is no evidence of prolapse. Bimanual examination is negative for mass or tenderness. RECTAL EXAM: Rectovaginal exam is negative for mass or tenderness and is negative for occult blood. EXTREMITIES: Nontender. IMPRESSION: 1. 83-year-old menopausal female who is status post vaginal hysterectomy for benign reasons with normal gynecologic exam. 2. Vasomotor symptoms after weaning off of ERT in 2018. PLAN: 1. Pap smears have been discontinued 2. Self breast awareness was discussed with the patient. 3. Screening mammogram will be done today. 4. Osteoporosis prevention was discussed. I have stressed the importance of adequate calcium, vitamin D and regular exercise. Recommended amounts of calcium and vitamin D were also discussed. The patient is scheduled for a bone density test today. 5. She plans to get her flu shot in the near future. 6. I have recommended that she have a screening colonoscopy since it has been about 13 years since her last one. She states she would like to avoid colonoscopy due to the perceived risk with the procedure. She states she will talk with Dr. Oliveira about colorectal screening and her options. 7. The patient was advised to return in 1-2 years for her well woman examination.
--- NOTE | 2019-05-11 10:29 | BD ---
EXAMINATION TYPE: Axial Bone Density DATE OF EXAM: 05/11/2019 COMPARISON: 02.22.2015 CLINICAL HISTORY: 83 YR OLD FEMALE....ICD-10 CODE: Z78.0 POST MENOPAUSE Height: 61.6 Weight: 120 FRAX RISK QUESTIONS: Family History (Parent hip fracture): YES, BUT NO HIP FX RISK FACTORS HISTORY OF: NO FXs OVER THE AGE OF 50 YRS OLD Family History of Osteoporosis: YES, MOTHER AND SISTER, GRANDMOTHER, NO HIP FXS Diet low in dairy products/other sources of calcium: YES, A BIT LOW Postmenopausal woman: YES, AT AGE 53 YRS OLD Take estrogen and/or progesterone medications: IN THE PAST FOR ABOUT 47 YRS, STOPPED 2 YRS AGO Hyperparathyroidism: NO Adrenal Insufficiency: NO MEDICATIONS: Additional Medications: BP MEDS, CALCIUM AND VIT D, Additional History: HX OF SKIN CANCER, HYPERTENSION EXAM MEASUREMENTS: Bone mineral densitometry was performed using the [employer] System. Bone mineral density as measured about the Lumbar spine is: ----- L1-L4(G/cm2): 1.325 T Score Values are as follows: ----- L1: 1.0 ----- L2: 1.0 ----- L3: 1.6 ----- L4: 1.1 ----- L1-L4: 1.2 Bone mineral density has: Increased 7.4% since study of: 02.22.2015 Bone mineral density about the R hip (g/cm2): 1.009 Bone mineral density about the L hip (g/cm2): 1.048 T Score values are as follows: -----R Neck: -0.7 -----L Neck: -0.2 -----R Total: 0.0 -----L Total: 0.3 Bone mineral density has: Increased 1.7% since study of: 02.22.2015 FRAX%s: THERE IS A 9.6% CHANCE FOR A MAJOR OSTEOPOROTIC FX AND A 2.0% FOR HIP.....PROBABILITY FOR F X IN 10 YRS TIME IMPRESSION: Normal (Values between +1 and -1 indicate normal bone mass). Consider repeating this study in 5 year s or sooner if there is some new clinical indication. NOTE: T-SCORE=SD OF THE YOUNG ADULT MEAN.
--- NOTE | 2019-05-12 10:36 | MM ---
Reason for exam: screening (asymptomatic). Last mammogram was performed 1 year and 1 month ago. History: Patient is postmenopausal and has history of other cancer at age 74. Family history of breast cancer in paternal grandmother, breast cancer in sister, and breast cancer in paternal aunt. Benign excisional biopsy of the left breast. Took estrogen for 20 years 7 months beginning at age 53. Took progesterone for 20 years 7 months beginning at age 53. Physical Findings: A clinical breast exam by your physician is recommended on an annual basis and results should be correlated with mammographic findings. MG 3D Screening Mammo W/Cad Bilateral CC and MLO view(s) were taken. Prior study comparison: April 01, 2018, bilateral MG 3d screening mammo w/cad. March 25, 2017, bilateral MG 3d screening mammo w/cad. There are scattered fibroglandular densities. Benign appearing bilateral calcifications. No suspicious abnormality. No significant changes when compared with prior studies. ASSESSMENT: Benign, BI-RAD 2 RECOMMENDATION: Routine screening mammogram of both breasts in 1 year.
--- NOTE | 2019-05-19 11:14 | P.PN ---
Progress Note - Text Progress Note Date: 05/19/19 OUTPATIENT FOLLOW-UP NOTE TEST(S)/RESULTS: Test results from 05/11/2019 include benign mammogram and normal bone density test. METHOD OF NOTIFICATION: The patient was notified by phone. PATIENT COMMENTS: The patient is happy to hear these results. DIAGNOSIS: Normal bone density test and benign mammogram. DISCUSSION: I have stressed the importance of continuing to get adequate calcium, vitamin D, and regular exercise. We will repeat the bone density test in approximate 6 years. PLAN: The patient was advised to return in 1-2 years for her well woman examination.
== END | disposition home or self-care (01) ==
LOC: WWCWWP 07:55
PROVIDERS: ATTEND Obstetrics & Gynecology
DX: Z12.31 Encounter for screening mammogram for malignant neoplasm of breast (principal); Z13.820 Encounter for screening for osteoporosis
CPT/HCPCS: 77063; 77067; 77080

== ENCOUNTER 2019-08-30 15:33 | Inpatient (IN) | payer MEDICARE ==
[2019-08-30] MEDS ORDERED: PANTOPRAZOLE 40 MG/10 ML VIAL IVP STA (16:01)
[2019-08-30] MEDS ORDERED: SODIUM CHLORIDE 0.9% 500 ML 500 ML IV STA (16:01)
--- NOTE | 2019-08-30 16:03 | ED ---
General Adult HPI - General Chief complaint: GI Bleed Stated complaint: poss blood transfusion Time Seen by Provider: 08/30/19 15:35 Source: patient, RN notes reviewed, old records reviewed Mode of arrival: ambulatory Limitations: no limitations - History of Present Illness Initial comments: This is an 84-year-old female presents emergency Department because her primary medical care doctor tested her stools and it showed positive for blood. Patient states she's been having black stools for 3 days. Patient states she's not on any blood thinners that she's never had any GI bleed in the past. Patient states that she has had some uncomfortable feeling in the epigastric region but is not that bad. Patient denies any ulcer history. Patient has noticed that she's had some shortness of breath over the last week. patient denies any lightheadedness or dizziness. Patient denies any headache patient denies numbness weakness. Patient denies any fever chills or cough. - Related Data Home Medications Medication Instructions Recorded Confirmed Calcium Carbonate [Calcium] 600 mg PO BID 04/01/18 05/11/19 Glucosamine Sulfate 1,500 mg PO DAILY 04/01/18 05/11/19 Previous Rx's Medication Instructions Recorded Aspirin 81 mg PO DAILY chew 08/02/18 Metoprolol Tartrate [Lopressor] 12.5 mg PO BID #60 dose 08/02/18 Nitroglycerin Sl Tabs [Nitrostat] 0.4 mg SUBLINGUAL Q5M PRN #25 tab 08/02/18 Allergies Allergy/AdvReac Type Severity Reaction Status Date / Time acetaminophen AdvReac Severe Rash/Hives Verified 08/30/19 15:37 [From Tylenol-Codeine #3] codeine AdvReac Severe Rash/Hives Verified 08/30/19 15:37 [From Tylenol-Codeine #3] latex AdvReac Rash/Hives Verified 08/30/19 15:37 Review of Systems ROS Statement: Those systems with pertinent positive or pertinent negative responses have been documented in the HPI. ROS Other: All systems not noted in ROS Statement are negative. Past Medical History Past Medical History: Hyperlipidemia, Hypertension Additional Past Medical History / Comment(s): Arthritis. 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 History of Any Multi-Drug Resistant Organisms: None Reported Past Surgical History: Hysterectomy Additional Past Surgical History / Comment(s): Vaginal hysterectomy with cystocele repair in 2007. Neurofibroma removed from her back in 2006. Colonoscopy 2005. Past Anesthesia/Blood Transfusion Reactions: No Reported Reaction Additional Past Anesthesia/Blood Transfusion Reaction / Comment(s): pt states s he has never had a blood transfusion. Past Psychological History: No Psychological Hx Reported Smoking Status: Never smoker Past Alcohol Use History: Occasional Past Drug Use History: None Reported - Past Family History Sister(s) Family Medical History: Cancer, CVA/TIA Additional Family Medical History / Comment(s): Breast cancer. Father Family Medical History: Cancer, Diabetes Mellitus Additional Family Medical History / Comment(s): Skin cancer. Heart disease. Paternal aunt and paternal grandmother had breast cancer. Brother(s) Family Medical History: Cancer Additional Family Medical History / Comment(s): Colon cancer. General Exam - General Exam Comments Initial Comments: GENERAL: Patient is well-developed and well-nourished. Patient is nontoxic and well- hydrated and is in mild distress. ENT: Neck is soft and supple. No significant lymphadenopathy is noted. Oropharynx is clear. Moist mucous membranes. Neck has full range of motion without eliciting any pain. EYES: The sclera were anicteric and conjunctiva were pink and moist. Extraocular movements were intact and pupils were equal round and reactive to light. Eyelids were unremarkable. PULMONARY: Unlabored respirations. Good breath sounds bilaterally. No audible rales rhonchi or wheezing was noted. CARDIOVASCULAR: There is a regular rate and rhythm without any murmurs gallops or rubs. ABDOMEN: Soft and nontender with normal bowel sounds. SKIN: Skin is clear with no lesions or rashes and otherwise unremarkable. NEUROLOGIC: Patient is alert and oriented x3. Cranial nerves II through XII are grossly intact. Motor and sensory are also intact. Normal speech, volume and content. Symmetrical smile. MUSCULOSKELETAL: Normal extremities with adequate strength and full range of motion. LYMPHATICS: No significant lymphadenopathy is noted PSYCHIATRIC: Normal psychiatric evaluation. Limitations: no limitations Course Vital Signs 08/30/19 08/30/19 15:35 16:33 Temperature 98.0 F Pulse Rate 113 H 87 Respiratory 20 18 Rate Blood Pressure 128/76 126/70 O2 Sat by Pulse 98 99 Oximetry Medical Decision Making - Medical Decision Making Patient's hemoglobin is 9.6 it dropped down from 13 back in April. I spoke with Dr. Denton and he accepted the patient. I consult to GI. I wrote admitting orders. EKG shows a normal sinus rhythm at 99 bpm ID interval 280 QRS is 74 Q-T intervals 362 QTC is 464. Patient's EKG shows no ST segment elevation or depression. - Lab Data Result diagrams: 08/30/19 16:16 08/30/19 16:16 Lab Results 08/30/19 08/30/19 08/30/19 Range/Units 16:16 16:16 16:16 WBC 7.6 (3.8-10.6) k/uL RBC 3.14 L (3.80-5.40) m/uL Hgb 9.6 L (11.4-16.0) gm/dL Hct 28.9 L (34.0-46.0) % MCV 92.0 (80.0-100.0) fL MCH 30.6 (25.0-35.0) pg MCHC 33.2 (31.0-37.0) g/dL RDW 13.2 (11.5-15.5) % Plt Count 229 (150-450) k/uL Neutrophils % 63 % Lymphocytes % 29 % Monocytes % 5 % Eosinophils % 1 % Basophils % 1 % Neutrophils # 4.7 (1.3-7.7) k/uL Lymphocytes # 2.2 (1.0-4.8) k/uL Monocytes # 0.4 (0-1.0) k/uL Eosinophils # 0.1 (0-0.7) k/uL Basophils # 0.1 (0-0.2) k/uL PT 9.7 (9.0-12.0) sec INR 0.9 (<1.2) APTT 22.1 (22.0-30.0) sec Sodium 135 L (137-145) mmol/L Potassium 3.6 (3.5-5.1) mmol/L Chloride 101 (98-107) mmol/L Carbon Dioxide 27 (22-30) mmol/L Anion Gap 7 mmol/L BUN 39 H (7-17) mg/dL Creatinine 0.57 (0.52-1.04) mg/dL Est GFR (CKD-EPI)AfAm >90 (>60 ml/min/1.73 sqM) Est GFR (CKD-EPI)NonAf 86 (>60 ml/min/1.73 sqM) Glucose 92 (74-99) mg/dL Calcium 9.2 (8.4-10.2) mg/dL Magnesium 2.0 (1.6-2.3) mg/dL Total Bilirubin 0.3 (0.2-1.3) mg/dL AST 31 (14-36) U/L ALT 18 (4-34) U/L Alkaline Phosphatase 58 (38-126) U/L Troponin I (0.000-0.034) ng/mL Total Protein 6.8 (6.3-8.2) g/dL Albumin 4.2 (3.5-5.0) g/dL 08/30/19 Range/Units 16:16 WBC (3.8-10.6) k/uL RBC (3.80-5.40) m/uL Hgb (11.4-16.0) gm/dL Hct (34.0-46.0) % MCV (80.0-100.0) fL MCH (25.0-35.0) pg MCHC (31.0-37.0) g/dL RDW (11.5-15.5) % Plt Count (150-450) k/uL Neutrophils % % Lymphocytes % % Monocytes % % Eosinophils % % Basophils % % Neutrophils # (1.3-7.7) k/uL Lymphocytes # (1.0-4.8) k/uL Monocytes # (0-1.0) k/uL Eosinophils # (0-0.7) k/uL Basophils # (0-0.2) k/uL PT (9.0-12.0) sec INR (<1.2) APTT (22.0-30.0) sec Sodium (137-145) mmol/L Potassium (3.5-5.1) mmol/L Chloride (98-107) mmol/L Carbon Dioxide (22-30) mmol/L Anion Gap mmol/L BUN (7-17) mg/dL Creatinine (0.52-1.04) mg/dL Est GFR (CKD-EPI)AfAm (>60 ml/min/1.73 sqM) Est GFR (CKD-EPI)NonAf (>60 ml/min/1.73 sqM) Glucose (74-99) mg/dL Calcium (8.4-10.2) mg/dL Magnesium (1.6-2.3) mg/dL Total Bilirubin (0.2-1.3) mg/dL AST (14-36) U/L ALT (4-34) U/L Alkaline Phosphatase (38-126) U/L Troponin I <0.012 (0.000-0.034) ng/mL Total Protein (6.3-8.2) g/dL Albumin (3.5-5.0) g/dL Disposition Clinical Impression: Gastrointestinal hemorrhage Disposition: ADMITTED IP TO THIS HOSP Referrals: Adam Oliveria MD [Primary Care Provider] - 1-2 days Time of Disposition: 17:17
[2019-08-30 16:30] LABS: Basophils # (A) 0.1 k/uL (0-0.2); Basophils % (A) 1 %; Eosinophils # (A) 0.1 k/uL (0-0.7); Eosinophils % (A) 1 %; HCT 28.9 % (34.0-46.0); HGB 9.6 gm/dL (11.4-16.0); Lymphocytes # (A) 2.2 k/uL (1.0-4.8); Lymphocytes % (A) 29 %; MCH 30.6 pg (25.0-35.0); MCHC 33.2 g/dL (31.0-37.0); Mean Platelet Volume 7.5; Monocytes # (A) 0.4 k/uL (0-1.0); Monocytes % (A) 5 %; Neutrophils # (A) 4.7 k/uL (1.3-7.7); Neutrophils % (A) 63 %; Platelet Count 229 k/uL (150-450); RBC 3.14 m/uL (3.80-5.40); RDW 13.2 % (11.5-15.5); WBC 7.6 k/uL (3.8-10.6)
[2019-08-30 16:39] LABS: ALT 18 U/L (4-34); AST 31 U/L (14-36); African American GFR (CKD) >90 (>60 ml/min/1.73 sqM); Albumin 4.2 g/dL (3.5-5.0); Alkaline Phosphatase 58 U/L (38-126); Anion Gap 7 mmol/L; Blood Urea Nitrogen 39 mg/dL (7-17); Calcium 9.2 mg/dL (8.4-10.2); Carbon Dioxide 27 mmol/L (22-30); Chloride 101 mmol/L (98-107); Glucose 92 mg/dL (74-99); Non-African American GFR(CKD) 86 (>60 ml/min/1.73 sqM); Potassium 3.6 mmol/L (3.5-5.1); Sodium 135 mmol/L (137-145); Total Bilirubin 0.3 mg/dL (0.2-1.3); Total Protein 6.8 g/dL (6.3-8.2)
[2019-08-30 16:53] LABS: INR 0.9 (<1.2); Partial Thromboplastin Time 22.1 sec (22.0-30.0); Prothrombin Time 9.7 sec (9.0-12.0)
[2019-08-30] MEDS ORDERED: SODIUM CHLORIDE 0.9% 1,000 ML IV ONE (17:18)
--- NOTE | 2019-08-30 17:45 | P.HPIM ---
History of Present Illness H&P Date: 08/30/19 Chief Complaint: GI bleeding 84-year-old female with hypertension well controlled at home with medications. Patient comes in with 4 day history of melena frequent bowel movements denies any associated abdominal pain. Denies any past episodes of GI bleeding. Denies taking any NSAIDs. Denies taking any blood thinner. She takes coated aspirin 81 mg daily which she has stopped 4 days ago when she noticed melena and she recognized this possibly could be GI bleeding. Patient reports frequent episodes of melena over the past 4 days today she started feeling some diff iculty in breathing with activity and easy fatigability she went to her doctor and tested positive for fecal occult stool and was sent to the ER for evaluation. She otherwise denies any hematemesis or coffee-ground vomiting denies any abdominal pain denies any history of episodes of GI bleeding. She reports normal colonoscopies in the past. She doesn't have any history of peptic ulcer disease. In the ED it seems like her hemoglobin dropped by 4 g compared to her baseline from April last year patient admitted for further evaluation and close monitoring Review of Systems Pertinent positives as noted in HPI. All other systems were reviewed and are negative Past Medical History Past Medical History: Hyperlipidemia, Hypertension Additional Past Medical History / Comment(s): Arthritis. History of Any Multi-Drug Resistant Organisms: None Reported Past Surgical History: Hysterectomy Additional Past Surgical History / Comment(s): Vaginal hysterectomy with cystocele repair in 2007. Neurofibroma removed from her back in 2006. Colonoscopy 2005. Past Anesthesia/Blood Transfusion Reactions: No Reported Reaction Additional Past Anesthesia/Blood Transfusion Reaction / Comment(s): pt states she has never had a blood transfusion. Past Psychological History: No Psychological Hx Reported Smoking Status: Never smoker Past Alcohol Use History: Occasional Past Drug Use History: None Reported - Past Family History Sister(s) Family Medical History: Cancer, CVA/TIA Additional Family Medical History / Comment(s): Breast cancer. Father Family Medical History: Cancer, Diabetes Mellitus Additional Family Medical History / Comment(s): Skin cancer. Heart disease. Paternal aunt and paternal grandmother had breast cancer. Brother(s) Family Medical History: Cancer Additional Family Medical History / Comment(s): Colon cancer. Medications and Allergies Home Medications Medication Instructions Recorded Confirmed Type Calcium Carbonate [Calcium] 600 mg PO BID 04/01/18 05/11/19 History Glucosamine Sulfate 1,500 mg PO DAILY 04/01/18 05/11/19 History Aspirin 81 mg PO DAILY chew 08/02/18 05/11/19 Rx Metoprolol Tartrate [Lopressor] 12.5 mg PO BID #60 dose 08/02/18 05/11/19 Rx Nitroglycerin Sl Tabs [Nitrostat] 0.4 mg SUBLINGUAL Q5M PRN #25 tab 08/02/18 05/11/19 Rx Allergies Allergy/AdvReac Type Severity Reaction Status Date / Time acetaminophen AdvReac Severe Rash/Hives Verified 08/30/19 15:37 [From Tylenol-Codeine #3] codeine AdvReac Severe Rash/Hives Verified 08/30/19 15:37 [From Tylenol-Codeine #3] latex AdvReac Rash/Hives Verified 08/30/19 15:37 Physical Exam Vitals: Vital Signs Temp Pulse Resp BP Pulse Ox 08/30/19 16:33 87 18 126/70 99 08/30/19 15:35 98.0 F 113 H 20 128/76 98 Intake and Output 08/30/19 08/30/19 08/30/19 06:59 14:59 22:59 Other: Weight 53.07 kg Constitutional: No acute distress, conversant, pleasant Eyes: Anicteric sclerae, moist conjunctiva, no lid-lag Pupils equal round reactive to light ENMT: NC/AT Oropharynx clear, no erythema, exudates Neck: Supple, FROM, no masses, or JVD No carotid bruits No thyromegaly Lungs: Clear to auscultation Clear to percussion Normal respiratory effort, no accessory muscle use Cardiovascular: Heart regular in rate and rhythm, No murmurs, gallops, or rubs No peripheral edema Abdominal: Soft Nontender, no guarding, rebound or rigidity Abdomen moving with respiration Normoactive bowel sounds No hepatomegaly, No splenomegaly No palpable mass No abdominal wall hernia noted Skin: Normal temperature, tone, texture, turgor No induration No subcutaneous nodules No rash, lesions No ulcers Extremities: No digital cyanosis No clubbing Pedal pulses intact and symmetrical Radial pulses intact and symmetrical No calf tenderness Psychiatric: Alert and oriented to person, place and time Appropriate affect fair judgement Neuro Muscles Strength 5/5 in all 4 extremities Sensation to light touch grossly present throughout Cranial nerves II-XII grossly intact No focal sensory deficits Lymphatics: no palpable cervical or supraclavicular , or inguinal lymph nodes Results CBC & Chem 7: 08/30/19 16:16 08/30/19 16:16 Labs: Abnormal Lab Results - Last 24 Hours (Table) 08/30/19 08/30/19 Range/Units 16:16 16:16 RBC 3.14 L (3.80-5.40) m/uL Hgb 9.6 L (11.4-16.0) gm/dL Hct 28.9 L (34.0-46.0) % Sodium 135 L (137-145) mmol/L BUN 39 H (7-17) mg/dL Assessment and Plan Assessment: 84-year-old female comes in with 3-4 day history of melena she saw her doctor today she tested positive for blood in her stool, and the ED she was found to have dropped her hemoglobin by 4 g from baseline admitted for close monitoring of GI bleeding and GI evaluation Anticipated length of stay less than 2 midnights Plan: acute symptomatic anemia secondary to GI bleeding rule out PUD vs AVMs avoid NSAID hold aspirin close monitoring of Hgb transfuse if hgb continues to drop, or worsening symptoms PPI BID GI evaluation to consider EGD hypertension , controlled continue home meds hold diuretics CODE STATUS full code DVT prophylaxis: mechanical Discussed with: Patient, ER, RN Anticipated length of stay < than [address]: home A total of 60 minutes was spent on the care of this complex patient more than 50% of the time was spent in counseling and care coordination. patient requested to remain under sound physician service until discharge
[2019-08-30] MEDS ORDERED: ALPRAZolam 1 MG TAB PO PRN (17:46)
[2019-08-30] MEDS: PANTOPRAZOLE 40 MG/10 ML VIAL IVP SCH (20:29)
[2019-08-30] MEDS: METOPROLOL TARTRATE 12.5 MG TAB PO SCH (20:58)
[2019-08-30] MEDS: NIFEdipine XL 30 MG TAB.ER.24 PO SCH (22:01)
[2019-08-31] MEDS: PANTOPRAZOLE 40 MG/10 ML VIAL IVP SCH ×2 (08:13→22:16)
[2019-08-31] MEDS: METOPROLOL TARTRATE 12.5 MG TAB PO SCH ×2 (08:13→22:15)
[2019-08-31 09:46] LABS: Basophils # (A) 0.1 k/uL (0-0.2); Basophils % (A) 1 %; Eosinophils # (A) 0.1 k/uL (0-0.7); Eosinophils % (A) 2 %; Lymphocytes # (A) 1.9 k/uL (1.0-4.8); Lymphocytes % (A) 39 %; MCH 31.1 pg (25.0-35.0); MCHC 32.9 g/dL (31.0-37.0); MCV 94.6 fL (80.0-100.0); Mean Platelet Volume 7.4; Monocytes # (A) 0.3 k/uL (0-1.0); Monocytes % (A) 5 %; Neutrophils # (A) 2.4 k/uL (1.3-7.7); Neutrophils % (A) 51 %; Platelet Count 192 k/uL (150-450); RBC 2.53 m/uL (3.80-5.40); RDW 13.3 % (11.5-15.5); WBC 4.8 k/uL (3.8-10.6)
[2019-08-31 09:51] LABS: HGB 7.9 gm/dL (11.4-16.0)
[2019-08-31 09:59] LABS: African American GFR (CKD) >90 (>60 ml/min/1.73 sqM); Anion Gap 4 mmol/L; Blood Urea Nitrogen 21 mg/dL (7-17); Calcium 8.5 mg/dL (8.4-10.2); Carbon Dioxide 27 mmol/L (22-30); Chloride 106 mmol/L (98-107); Glucose 84 mg/dL (74-99); Non-African American GFR(CKD) 85 (>60 ml/min/1.73 sqM); Potassium 3.7 mmol/L (3.5-5.1); Sodium 137 mmol/L (137-145)
--- NOTE | 2019-08-31 11:14 | P.PN ---
Subjective Progress Note Date: 08/31/19 Principal diagnosis: follow up on GI bleeding , symptomatic anemia Patient seen and examined continues to deny any chest pain trouble breathing or abdominal pain. At home patient reported heavy breathing and increased fatigability with mild exertion, which is thought to be due to symptomatic anemia She continues to report black tarry stool Denies any vomiting she continues to be nothing by mouth Objective - Vital Signs Vital signs: Vital Signs Temp 97.6 F 08/31/19 07:00 Pulse 76 08/31/19 07:00 Resp 14 08/31/19 03:00 BP 90/50 08/31/19 07:00 Pulse Ox 97 08/31/19 03:00 Intake & Output 08/30/19 08/31/19 08/31/19 18:59 06:59 18:59 Intake Total 1340 Balance 1340 Weight 53.07 kg Intake: Intake, IV Titration 1090 Amount Sodium Chloride 0.9% 1, 590 000 ml @ 75 mls/hr IV . [id number] [facility] Rx#:[id number] Sodium Chloride 0.9% 500 500 ml 500 ml @ 999 mls/hr IV .Q31M [facility] Rx#:[id number] Oral 250 - Exam Constitutional: vital signs stable, Not in acute distress, pleasant, conversant Lungs: Clear to auscultation bilaterally, clear to percussion, normal respiratory effort Cardiovascular: Regular rate and rhythm, no murmurs, no gallops, no rubs, no peripheral edema Gastrointestinal: Soft, no tenderness to palpation, no palpable hepatosplenomegally, bowel sounds positive, Extremities: No digital cyanosis or clubbing, peripheral pulses palpable and equal , no calf muscle tenderness Psych: Alert, oriented to place, person and time, appropriate affect, intact ju dgment - Labs CBC & Chem 7: 08/31/19 08:51 08/31/19 08:51 Labs: Abnormal Lab Results - Last 24 Hours (Table) 08/30/19 08/30/19 08/30/19 Range/Units 16:16 16:16 16:16 RBC 3.14 L (3.80-5.40) m/uL Hgb 9.6 L (11.4-16.0) gm/dL Hct 28.9 L (34.0-46.0) % Sodium 135 L (137-145) mmol/L BUN 39 H (7-17) mg/dL Crossmatch See Detail 08/31/19 08/31/19 Range/Units 08:51 08:51 RBC 2.53 L (3.80-5.40) m/uL Hgb 7.9 L D (11.4-16.0) gm/dL Hct 24.0 L (34.0-46.0) % Sodium (137-145) mmol/L BUN 21 H (7-17) mg/dL Crossmatch Assessment and Plan Assessment: 84-year-old female comes in with 3-4 day history of melena she saw her doctor today she tested positive for blood in her stool, and the ED she was found to have dropped her hemoglobin by 4 g from baseline admitted for close monitoring of GI bleeding and GI evaluation Anticipated length of stay less than 2 midnights 08/31 Patient was made inpatient with anticipated length of stay more than 2 midnights due to further drop in her hemoglobin and ongoing black tarry stool GI planning on EGD in the morning Blood transfusion today due to symptomatic anemia and significant drop of hemoglobin from her baseline of 13 down to 7.9 Plan: acute symptomatic anemia secondary to GI bleeding rule out PUD vs AVMs avoid NSAID hold aspirin close monitoring of Hgb 1 units of blood transfusion, patient dropped >5 g from her baseline hemoglobin continues to have black tarry stool PPI BID GI evaluation to consider EGD in the morning hypertension , currently hypotensive with systolic in the 90s continue home meds, with hold parameters hold diuretics Patient switched to inpatient status Anticipating discharge in 48 hours patient requested to remain under sound physician service until discharge
[2019-08-31 15:53] LABS: Basophils % (A) 0 %; Eosinophils # (A) 0.1 k/uL (0-0.7); Eosinophils % (A) 2 %; HCT 27.7 % (34.0-46.0); HGB 9.3 gm/dL (11.4-16.0); Lymphocytes # (A) 1.7 k/uL (1.0-4.8); Lymphocytes % (A) 35 %; MCH 31.8 pg (25.0-35.0); MCHC 33.7 g/dL (31.0-37.0); MCV 94.3 fL (80.0-100.0); Monocytes # (A) 0.3 k/uL (0-1.0); Monocytes % (A) 6 %; Neutrophils # (A) 2.6 k/uL (1.3-7.7); Neutrophils % (A) 53 %; Platelet Count 195 k/uL (150-450); RBC 2.94 m/uL (3.80-5.40); RDW 13.5 % (11.5-15.5); WBC 4.8 k/uL (3.8-10.6)
[2019-08-31] MEDS: SODIUM CHLORIDE 0.9% 1,000 ML IV SCH ×3 (16:33→22:16)
--- NOTE | 2019-08-31 22:02 | CONS ---
CONSULTATION DATE OF DICTATION: 08/31/2019 REASON FOR CONSULTATION: Melena and anemia. HISTORY OF PRESENT ILLNESS: The patient is an 84-year-old pleasant white female who came into the emergency room complaining of black tarry stools for the last 5 days' duration. She has been having 1- 2 bowel movements daily which are black and tarry associated with some weakness, dizziness. She came to the emergency room and was noted to have a hemoglobin of 7 and required one unit of blood transfusion. She denies any associated abdominal pain. No nausea or vomiting. Never had prior history of peptic ulcer disease or recent NSAID use. No history of EGD in the past. Her last colonoscopy was about 10 years ago. PAST MEDICAL HISTORY: Significant for hypertension, hyperlipidemia and degenerative joint disease. MEDICATIONS AT HOME: Calcium carbonate, aspirin, glucosamine, metoprolol and Nitrostat. ALLERGIES: ACETAMINOPHEN and TYLENOL NO.3. PAST SURGICAL HISTORY: Colonoscopy in 2005, vaginal hysterectomy. FAMILY HISTORY: Sister had breast cancer, father diabetes mellitus and skin cancer. REVIEW OF SYSTEMS: CARDIOPULMONARY: No chest pain or shortness of breath. GENITOURINARY: No dysuria or hematuria. MUSCULOSKELETAL: Unremarkable. SKIN: Unremarkable. ENDOCRINE: Unremarkable. PSYCHIATRIC: Unremarkable. NEUROLOGY: Unremarkable. ENT/VISION: Unremarkable. CONSTITUTIONAL: No recent weight loss. No fever, chills, night sweats. PHYSICAL EXAMINATION: She appears comfortable. No apparent distress. VITAL SIGNS: Stable. Blood pressure is 110/62, pulse rate 70, temperature 97.3. HEENT examination unremarkable. Conjunctivae pink. Sclerae anicteric. Oral cavity no lesions. NECK: No JVD or lymph node enlargement. CHEST: Clear to auscultation. HEART: Regular rate and rhythm. ABDOMEN: Soft. Bowel sounds are positive. No organomegaly. EXTREMITIES: No pedal edema. SKIN: No rashes. NEUROLOGIC: Alert and oriented x3. No focal deficits. LABS: Labs from today show WBC 7.6. Yesterday hemoglobin 9.6, but it dropped to 7.9; got one unit of blood transfusion and today it is 9.3. BUN elevated at 39, creatinine 0.57. PT and INR within normal limits. IMPRESSION: 1. Black tarry stools of 5 days' duration with a drop in hemoglobin to 7.9 requiring one unit of blood transfusion. Most likely we are dealing with an upper GI source of bleeding. No history of peptic ulcer disease or recent NSAID use. 2. History of hypertension. RECOMMENDATIONS: 1. Continue with Protonix 40 mg q.12 hours. 2. Start her on a clear liquid diet. 3. Will proceed with an EGD tomorrow. I discussed with the patient risks, benefits and complications of the procedure and she is agreeable to it. Thank you for this consultation. KELLI / IJN: [id number] /
[2019-08-31] MEDS: NIFEdipine XL 30 MG TAB.ER.24 PO SCH (22:15)
[2019-09-01 00:57] LABS: Basophils % (A) 1 %; Eosinophils # (A) 0.1 k/uL (0-0.7); Eosinophils % (A) 2 %; HGB 9.1 gm/dL (11.4-16.0); Lymphocytes # (A) 2.1 k/uL (1.0-4.8); Lymphocytes % (A) 35 %; MCH 31.3 pg (25.0-35.0); MCHC 33.6 g/dL (31.0-37.0); Mean Platelet Volume 7.3; Monocytes # (A) 0.4 k/uL (0-1.0); Monocytes % (A) 6 %; Neutrophils # (A) 3.1 k/uL (1.3-7.7); Neutrophils % (A) 53 %; Platelet Count 204 k/uL (150-450); RBC 2.91 m/uL (3.80-5.40); RDW 13.7 % (11.5-15.5); WBC 5.8 k/uL (3.8-10.6)
[2019-09-01 06:48] LABS: Basophils % (A) 1 %; Eosinophils # (A) 0.1 k/uL (0-0.7); Eosinophils % (A) 2 %; HCT 32.7 % (34.0-46.0); HGB 10.9 gm/dL (11.4-16.0); Lymphocytes # (A) 2.5 k/uL (1.0-4.8); Lymphocytes % (A) 39 %; MCH 31.4 pg (25.0-35.0); MCHC 33.2 g/dL (31.0-37.0); MCV 94.4 fL (80.0-100.0); Mean Platelet Volume 7.4; Monocytes # (A) 0.3 k/uL (0-1.0); Monocytes % (A) 5 %; Neutrophils # (A) 3.3 k/uL (1.3-7.7); Neutrophils % (A) 52 %; Platelet Count 228 k/uL (150-450); RBC 3.47 m/uL (3.80-5.40); RDW 13.5 % (11.5-15.5); WBC 6.3 k/uL (3.8-10.6)
[2019-09-01] MEDS: PANTOPRAZOLE 40 MG/10 ML VIAL IVP SCH (08:10)
[2019-09-01] MEDS: METOPROLOL TARTRATE 12.5 MG TAB PO SCH (08:10)
[2019-09-01] MEDS: SODIUM CHLORIDE 0.9% 1,000 ML IV SCH (08:10)
[2019-09-01 08:24] VITALS: RESP 20; TEMP 97.3
[2019-09-01] MEDS ORDERED: LIDOCAINE 1% INJ 10MG/ML (20 ML MDV) ONE (12:59)
[2019-09-01] MEDS ORDERED: PROPOFOL 10 MG/ML 20 ML VIAL IV ONE (12:59)
[2019-09-01] MEDS ORDERED: IV FLUID CONTINUATION 600 ML IV ONE (13:01)
--- NOTE | 2019-09-01 13:18 | P.PN ---
Subjective Principal diagnosis: follow up on GI bleeding , symptomatic anemia Patient seen and examined continues to deny any chest pain trouble breathing or abdominal pain. last black bowel movement was last night patient awaits EGD today Objective - Vital Signs Vital signs: Vital Signs Temp 97.3 F L 09/01/19 08:00 Pulse 74 09/01/19 08:00 Resp 20 09/01/19 08:00 BP 114/68 09/01/19 08:00 Pulse Ox 98 09/01/19 08:00 Intake & Output 08/31/19 09/01/19 09/01/19 18:59 06:59 18:59 Intake Total 1410 1000 Balance 1410 1000 Weight 53.07 kg 54.4 kg Intake: Intake, IV Titration 600 1000 Amount Sodium Chloride 0.9% 1, 600 1000 000 ml @ 100 mls/hr IV . Q10H [facility] Rx#:[id number] Oral 500 0 Blood Product 310 Rc As-1 Unit 310 [id number] Other: # Bowel Movements 1 - Exam Constitutional: vital signs stable, Not in acute distress, pleasant, conversant Lungs: Clear to auscultation bilaterally, clear to percussion, normal respi ratory effort Cardiovascular: Regular rate and rhythm, no murmurs, no gallops, no rubs, no peripheral edema Gastrointestinal: Soft, no tenderness to palpation, bowel sounds positive, Extremities: No digital cyanosis or clubbing, peripheral pulses palpable and equal , no calf muscle tenderness Psych: Alert, oriented to place, person and time, appropriate affect, intact judgment - Labs CBC & Chem 7: 09/01/19 06:22 08/31/19 08:51 Labs: Abnormal Lab Results - Last 24 Hours (Table) 08/30/19 08/31/19 09/01/19 Range/Units 16:16 15:36 00:22 RBC 2.94 L 2.91 L (3.80-5.40) m/uL Hgb 9.3 L 9.1 L (11.4-16.0) gm/dL Hct 27.7 L 27.0 L (34.0-46.0) % Crossmatch See Detail 09/01/19 Range/Units 06:22 RBC 3.47 L (3.80-5.40) m/uL Hgb 10.9 L (11.4-16.0) gm/dL Hct 32.7 L (34.0-46.0) % Crossmatch Assessment and Plan Assessment: 84-year-old female comes in with 3-4 day history of melena she saw her doctor today she tested positive for blood in her stool, and the ED she was found to have dropped her hemoglobin by 4 g from baseline admitted for close monitoring of GI bleeding and GI evaluation Anticipated length of stay less than 2 midnights 08/31 Patient was made inpatient with anticipated length of stay more than 2 midnights due to further drop in her hemoglobin and ongoing black tarry stool GI planning on EGD in the morning Blood transfusion today due to symptomatic anemia and significant drop of hemoglobin from her baseline of 13 down to 7.9 09/01 Hemoglobin improved today status post 1 unit of blood transfusion Last black tarry bowel movement was last night Await EGD today Plan: acute symptomatic anemia secondary to GI bleeding rule out PUD vs AVMs, EGD avoid NSAID hold aspirin close monitoring of Hgb, impving, s/p 1 unit blood trANSfusion PPI BID GI following hypertension , currently well controlled continue home meds, with hold parameters hold diuretics Patient switched to inpatient status Anticipating discharge in 24 hours patient requested to remain under sound physician service until discharge
--- NOTE | 2019-09-01 13:19 | P.PCN ---
Date of Procedure: 09/01/19 Procedure(s) Performed: BRIEF HISTORY: Patient is a 84-year-old, pleasant, white female came into the emergency room yesterday complaining of fatigue shortness of breath and black tarry stools for the last 5 days duration. Hemoglobin was 7.5 g/dL. She received 1 unit of blood transition. She is scheduled for an upper endoscopy to evaluate further. PROCEDURE PERFORMED: Esophagogastroduodenoscopy with biopsy. PREOPERATIVE DIAGNOSIS: Melena and anemia. IV sedation per anesthesia. PROCEDURE: After informed consent was obtained, the patient was brought into the endoscopy unit. IV sedation was administered by Anesthesia under continuous monitoring. Initially the Olympus GIF-140 video endoscope was inserted into the mouth. Esophagus intubated without any difficulty. It was gradually advanced into the stomach and duodenum and carefully examined. The bulb and the second part of the duodenum appeared normal. The scope at this time was withdrawn to the stomach, adequately insufflated with air, and upon careful examination, mucosa of the antrum, appeared normal. There were 2 ulcerations along the distal body of the esophagus stomach along the lesser curvature measuring 1 mm and 2 cm both of which were clean based with no active bleeding. Biopsies were done from the margin of the ulcer. The rest of the body, cardia and the fundus appeared normal. The scope was then withdrawn into the esophagus. The GE junction was located at 39 cm from the incisors. Small hiatal hernia noted The esophagus appeared normal. There were no erosions or ulcerations seen and the patient tolerated the procedure well. IMPRESSION: 1. 1 cm and 2 cm clean-based gastric ulcers with no active bleeding along the lesser curvature of the stomach with surrounding gastritis status post biopsy. 2. Small hiatal hernia. RECOMMENDATIONS: The findings of this examination were discussed with the patient as well as a family. She was advised to follow with the biopsy results. She will continue on Protonix 40 mg twice daily and and await biopsy results. She'll be seen in office in one month. We'll plan a repeat upper endoscopy in 3 months to ensure adequate healing of the gastric ulcer..
[2019-09-01 13:45] VITALS: BP 135/66; PULSE 85
[2019-09-01 13:46] VITALS: BMI 21.9
--- NOTE | 2019-09-01 13:58 | P.DS ---
Providers Date of admission: 08/31/19 11:05 Attending physician: Jose Elias Denton MD Consults: 08/30/19 17:18 Consult Physician Urgent Consulting Provider: Beba Machado Consult Reason/Comments: GI bleed Do you want consulting provider notified?: Yes [facility] Course: Final diagnoses at discharge Peptic ulcer disease, gastric ulcers status post biopsy, 1 cm and 2 cm clean- based gastric ulcers no active bleeding along the lesser curvature, with surrounding gastritis Acute symptomatically anemia secondary to GI bleeding, status post 1 unit blood transfusion GI bleeding Small hiatal hernia Hospital course 84-year-old female comes in with 3-4 day history of melena she saw her doctor today she tested positive for blood in her stool, and the ED she was found to ferrer ve dropped her hemoglobin by 4 g from baseline admitted for close monitoring of GI bleeding and GI evaluation Anticipated length of stay less than 2 midnights 08/31 Patient was made inpatient with anticipated length of stay more than 2 midnights due to further drop in her hemoglobin and ongoing black tarry stool GI planning on EGD in the morning Blood transfusion today due to symptomatic anemia and significant drop of hemoglobin from her baseline of 13 down to 7.9 09/01 Hemoglobin improved today status post 1 unit of blood transfusion Last black tarry bowel movement was last night Constitutional: vital signs stable, Not in acute distress, pleasant, conversant Lungs: Clear to auscultation bilaterally, clear to percussion, normal respiratory effort Cardiovascular: Regular rate and rhythm, no murmurs, no gallops, no rubs, no peripheral edema Gastrointestinal: Soft, no tenderness to palpation, bowel sounds positive, Extremities: No digital cyanosis or clubbing, peripheral pulses palpable and equal , no calf muscle tenderness Psych: Alert, oriented to place, person and time, appropriate affect, intact judgment Discharge home Follow up with GI Follow-up with PCP Continue with PPI twice a day Follow-up on biopsy results 40 minutes were spent discharging this patient, and more than 50% of the time was spent in counseling the patient and family and in coordinating care. Procedures: EGD found to gastric ulcers status post biopsy, 1 cm and 2 cm clean-based gastric ulcers no active bleeding along the lesser curvature, with surrounding gastritis Small hiatal hernia Patient Condition at Discharge: Stable Plan - Discharge Summary Discharge Rx Participant: No New Discharge Prescriptions: New Metoprolol Tartrate [Lopressor] 12.5 mg PO BID #60 tab Pantoprazole Sodium [Protonix] 40 mg PO BID #60 tablet. Continue Nitroglycerin Sl Tabs [Nitrostat] 0.4 mg SUBLINGUAL Q5M PRN #25 tab PRN Reason: Angina NIFEdipine [Procardia XL] 30 mg PO HS Hydrochlorothiazide [Hydrodiuril] 25 mg PO HS Discontinued Artificial Tears-Hypromellose [Artificial Tear Drops] 1 drop BOTH EYES TID PRN PRN Reason: Dry Eye(S) Discharge Medication List Nitroglycerin Sl Tabs [Nitrostat] 0.4 mg SUBLINGUAL Q5M PRN #25 tab 08/02/18 [Rx] Hydrochlorothiazide [Hydrodiuril] 25 mg PO HS 08/30/19 [History] NIFEdipine [Procardia XL] 30 mg PO HS 08/30/19 [History] Metoprolol Tartrate [Lopressor] 12.5 mg PO BID #60 tab 09/01/19 [Rx] Pantoprazole Sodium [Protonix] 40 mg PO BID #60 tablet. 09/01/19 [Rx] Follow up Appointment(s)/Referral(s): Beba Machado MD [STAFF PHYSICIAN] - 1 Week Adam Oliveira MD [Primary Care Provider] - 1-2 days Patient Instructions/Handouts: Gastrointestinal Bleeding (ED), Peptic Ulcer (DC) Discharge Disposition: HOME SELF-CARE
== END 2019-09-01 15:15 | disposition home or self-care (01) | DRG 378 ==
LOC: EC 15:33 → 4SSUR 17:19 → OBSVTOIN 08-31 11:05 → 3SCARD 08-31 11:22
PROVIDERS: ADMIT Internal Medicine; ATTEND Internal Medicine
PROC: 30233N1 Transfusion of Nonautologous Red Blood Cells into Peripheral Vein, Percutaneous Approach (ICD-10-PCS; 2019-08-31)
PROC: 0DB68ZX Excision of Stomach, Via Natural or Artificial Opening Endoscopic, Diagnostic (ICD-10-PCS; principal; 2019-09-01 12:00)
DX: K25.4 Chronic or unspecified gastric ulcer with hemorrhage (principal); D62 Acute posthemorrhagic anemia; K44.9 Diaphragmatic hernia without obstruction or gangrene; E78.5 Hyperlipidemia, unspecified; I10 Essential (primary) hypertension; K29.70 Gastritis, unspecified, without bleeding; Z79.82 Long term (current) use of aspirin; Z80.0 Family history of malignant neoplasm of digestive organs; Z80.3 Family history of malignant neoplasm of breast; Z80.8 Family history of malignant neoplasm of other organs or systems; Z83.3 Family history of diabetes mellitus; Z90.710 Acquired absence of both cervix and uterus; Z88.6 Allergy status to analgesic agent
CPT/HCPCS: 36415; 36430; 43239; 80048; 80053; 83605; 83735; 84484; 85025; 85610; 85730; 86850; 86900; 86901; 86920; 96361; 96374; 96376; 99285

== ENCOUNTER → 2019-10-13 | Outpatient (CLI) | payer MEDICARE ==
[2019-10-13 09:58] LABS: Basophils % (A) 1 %; Eosinophils # (A) 0.1 k/uL (0-0.7); Eosinophils % (A) 2 %; HCT 36.6 % (34.0-46.0); HGB 11.9 gm/dL (11.4-16.0); Lymphocytes # (A) 2.3 k/uL (1.0-4.8); Lymphocytes % (A) 37 %; MCH 30.1 pg (25.0-35.0); MCHC 32.6 g/dL (31.0-37.0); MCV 92.2 fL (80.0-100.0); Mean Platelet Volume 7.1; Monocytes # (A) 0.4 k/uL (0-1.0); Monocytes % (A) 7 %; Neutrophils # (A) 3.1 k/uL (1.3-7.7); Neutrophils % (A) 50 %; Platelet Count 335 k/uL (150-450); RBC 3.96 m/uL (3.80-5.40); RDW 13.3 % (11.5-15.5); WBC 6.2 k/uL (3.8-10.6)
[2019-10-13 16:43] LABS: % Iron Saturation 9.5 (12.00-45.00); African American GFR (CKD) 92.9 (60.0-200.0); Anion Gap 9.9 mmol/L (4.00-12.00); BUN/Creat Ratio 22.86 Ratio (12.00-20.00); Calcium 9.9 mg/dL (8.7-10.3); Carbon Dioxide 31.1 mmol/L (21.6-31.8); Non-African American GFR(CKD) 80.1 (60.0-200.0); Potassium 3.4 mmol/L (3.5-5.5)
== END | disposition home or self-care (01) ==
LOC: LABWHC1 09:11
PROVIDERS: ATTEND Internal Medicine
DX: K25.4 Chronic or unspecified gastric ulcer with hemorrhage (principal)
CPT/HCPCS: 36415; 80048; 82728; 83540; 83550; 85025

== ENCOUNTER 2020-02-02 10:13 | Day surgery (SDC) | payer MEDICARE ==
[2020-02-01 11:50] VITALS: BMI 21.2
[2020-02-02 10:50] VITALS: TEMP 97.7
[2020-02-02] MEDS ORDERED: LACTATED RINGERS 1,000 ML IV ONE (10:54)
[2020-02-02] MEDS ORDERED: LIDOCAINE 1% (10MG/ML) FOR IV START INTRADERMA ONE (10:57)
[2020-02-02] MEDS ORDERED: LIDOCAINE 1% INJ 10MG/ML (20 ML MDV) ONE (11:26)
[2020-02-02] MEDS ORDERED: PROPOFOL 10 MG/ML 20 ML VIAL IV ONE (11:26)
--- NOTE | 2020-02-02 11:47 | P.PCN ---
Date of Procedure: 02/02/20 Procedure(s) Performed: Brief history: Patient is a pleasant 84-year-old white female scheduled for an elective upper endoscopy as well as colonoscopy as a part of follow-up of gastric MALT lymphoma diagnosed 3 months ago. Upper endoscopy done at that time revealed 2 ulcers in the gastric body and biopsies revealed gastric polypsphoma MALT lym She was treated with H. pylori gastritis and is scheduled for follow-up today. She'll also noted to have iron deficiency anemia and hence scheduled for c olonoscopy today. Procedure performed: Esophagogastroduodenoscopy with biopsy Colonoscopy Preoperative diagnosis: Follow-up gastric MALT lymphoma Iron deficiency anemia Anesthesia: [facility] [place] Procedure: After informed consent was obtained from the patient was brought into the endoscopy unit and IV sedation was administered by anesthesia under continuous monitoring. Initially upper endoscopy was done. The Olympus GF 160 video endoscope was inserted inserted into the mouth and esophagus intubated without any difficulty and was gradually advanced into the stomach and duodenum and carefully examined. The bulb and second part of the duodenum appeared normal. The scope was then withdrawn into the stomach adequately insufflated with air and upon careful examination the antrum and body had atrophic appearing gastritis and biopsies were done from this area. The previously noted gastric ulcers have healed. The mucosa of the , cardia and fundus appeared normal. The scope was then withdrawn into the esophagus. The GE junction was located at 36 cm to the incisors. It appeared regular with no erythema erosions or ulcerations. Rest of the esophagus appeared normal. Patient tolerated the procedure well. At this time the patient continued to remain sedation. Initial digital rectal examination was normal. Olympus CF 160 video colonoscope was then inserted into the rectum and gradually advanced to the cecum without any difficulty. Careful examination was performed as the scope was gradually being withdrawn. The prep was excellent. The cecum, ascending colon, transverse colon, descending colon, sigmoid colon and rectum appeared normal. Retroflexion was performed in the rectum and no lesions were noted. Patient tolerated the procedure well. Impression: 1. Upper endoscopy revealed gastritis involving the body and antrum of the stomach but no ulcerations seen. 2. Colonoscopy revealed scattered diffuse diverticulosis but no evidence of colorectal neoplasia Recommendations: Findings of this examination were discussed with the patient as we as his family. She was advised to follow with the biopsy results. She'll be seen in office in 2-3 weeks.
[2020-02-02 12:02] VITALS: RESP 18
[2020-02-02 12:08] VITALS: BP 124/62; PULSE 73
== END 2020-02-02 12:51 | disposition home or self-care (01) ==
LOC: ORWHC2ENDO 10:13
PROVIDERS: ATTEND Internal Medicine Gastroenterology
DX: K57.30 Diverticulosis of large intestine without perforation or abscess without bleeding (principal); K29.50 Unspecified chronic gastritis without bleeding; D50.9 Iron deficiency anemia, unspecified; C88.4 Extranodal marginal zone B-cell lymphoma of mucosa-associated lymphoid tissue [MALT-lymphoma]; Z86.19 Personal history of other infectious and parasitic diseases; K21.9 Gastro-esophageal reflux disease without esophagitis; I10 Essential (primary) hypertension; Z90.710 Acquired absence of both cervix and uterus; Z98.890 Other specified postprocedural states; Z79.82 Long term (current) use of aspirin; Z79.899 Other long term (current) drug therapy; Z91.040 Latex allergy status; Z88.5 Allergy status to narcotic agent; Z88.8 Allergy status to other drugs, medicaments and biological substances; Z91.09 Other allergy status, other than to drugs and biological substances
CPT/HCPCS: 88305; 45378; 43239; J2001; J2704

== ENCOUNTER → 2020-05-03 | Outpatient (CLI) | payer MEDICARE ==
[2020-05-03 11:24] LABS: Basophils % (A) 1 %; Eosinophils # (A) 0.1 k/uL (0-0.7); Eosinophils % (A) 2 %; HCT 37.4 % (34.0-46.0); HGB 12.2 gm/dL (11.4-16.0); Lymphocytes # (A) 1.6 k/uL (1.0-4.8); Lymphocytes % (A) 29 %; MCH 31.8 pg (25.0-35.0); MCHC 32.7 g/dL (31.0-37.0); MCV 97.2 fL (80.0-100.0); Mean Platelet Volume 6.6; Monocytes # (A) 0.4 k/uL (0-1.0); Monocytes % (A) 7 %; Neutrophils # (A) 3.3 k/uL (1.3-7.7); Neutrophils % (A) 60 %; Platelet Count 241 k/uL (150-450); RBC 3.85 m/uL (3.80-5.40); RDW 13.1 % (11.5-15.5); WBC 5.5 k/uL (3.8-10.6)
[2020-05-03 11:35] LABS: Appearance,Urine Clear (Clear); Bilirubin,Urine Negative (Negative); Blood,Urine Negative (Negative); Color,Urine Yellow; Glucose,Urine (UA) Negative (Negative); Ketones,Urine Negative (Negative); Leukocyte Esterase,Urine Small (Negative); Mucus,Urine Rare /hpf; Nitrite,Urine Negative (Negative); Protein,Urine Negative (Negative); RBC,Urine <1 /hpf (0-5); Specific Gravity,Urine 1.016 (1.001-1.035); Squamous Epithelial Cell,Urine <1 /hpf (0-4); Urobilinogen,Urine <2.0 mg/dL (<2.0); WBC,Urine 3 /hpf (0-5)
[2020-05-03 21:32] LABS: % Iron Saturation 22.28 (12.00-45.00); African American GFR (CKD) 97.7 (60.0-200.0); Albumin 4.6 g/dL (3.80-4.90); Anion Gap 9.9 mmol/L (4.00-12.00); BUN/Creat Ratio 26.67 Ratio (12.00-20.00); Carbon Dioxide 28.1 mmol/L (21.6-31.8); Chol/HDL Ratio 1.94; Globulin 2.3 g/dL (1.6-3.3); LDL Cholesterol,Calculated 72.6 mg/dL (0.0-131.0); Magnesium 1.8 mg/dL (1.5-2.4); Non-African American GFR(CKD) 84.3 (60.0-200.0); Potassium 3.9 mmol/L (3.5-5.5); Total Bilirubin 0.6 mg/dL (0.3-1.2); Total Protein 6.9 g/dL (6.2-8.2); VLDL Calculation 19.4 mg/dL (5.00-40.00)
[2020-05-03 21:42] LABS: Ferritin 77.6 ng/mL (10.0-291.0)
== END | disposition home or self-care (01) ==
LOC: LABWHC1 09:56
PROVIDERS: ATTEND Internal Medicine
DX: I10 Essential (primary) hypertension (principal); E55.9 Vitamin D deficiency, unspecified; R63.4 Abnormal weight loss; D50.9 Iron deficiency anemia, unspecified
CPT/HCPCS: 36415; 80053; 80061; 81001; 82306; 82728; 83540; 83550; 83735; 84443; 85025

== ENCOUNTER → 2020-05-16 | Outpatient (CLI) | payer MEDICARE ==
[2020-05-16 08:09] VITALS: BP 148/74; PULSE 78; RESP 16; TEMP 97.8
--- NOTE | 2020-05-16 08:44 | P.HPOB ---
History of Present Illness H&P Date: 05/16/20 Chief Complaint: The patient is here for her routine gynecologic exam and ma mmogram. This is a 84-year-old with an LMP of 1987. She is status post vaginal hysterectomy for benign reasons. She has been off of ERT since January 2018. She is without gynecologic complaints. Review of Systems She is lost about 6 pounds over the past year. She denies respiratory, cardiac and G.I. problems. She denies maltreatment or problems with falling. : she denies any significant problems with urinary leakage. Skin: She has noticed a red spot on her anterior left thigh area and she states she notices it only this past week. Past Medical History Past Medical History: Cancer, GERD/Reflux, Hypertension, Osteoarthritis (OA), Pneumonia Additional Past Medical History / Comment(s): hx melanoma skin cancer, lymphoma. 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 Past Anesthesia/Blood Transfusion Reactions: No Reported Reaction Additional Past Anesthesia/Blood Transfusion Reaction / Comment(s): . Past Psychological History: Depression Additional Psychological History / Comment(s): lost spouse recently Smoking Status: Former smoker Past Alcohol Use History: Occasional (1 per week) Additional Past Alcohol Use History / Comment(s): Pt started smoking in 1955 and quit in 1964. Past Drug Use History: None Reported Additional History: She is a since 2019. - Past Family History Sister(s) Family Medical History: Cancer Additional Family Medical History / Comment(s): Breast cancer. Father Family Medical History: Cancer Additional Family Medical History / Comment(s): Skin cancer. Brother(s) Family Medical History: Cancer Additional Family Medical History / Comment(s): Colon cancer. Mother Family Medical History: No Reported History Additional Family Medical History / Comment(s): Mother was healthy and lived to be 98yrs. Medications and Allergies Home Medications Medication Instructions Recorded Confirmed Type Nitroglycerin Sl Tabs [Nitrostat] 0.4 mg SUBLINGUAL Q5M PRN #25 tab 08/02/18 05/16/20 Rx NIFEdipine [Procardia XL] 30 mg PO QAM 08/30/19 05/16/20 History hydroCHLOROthiazide [Hydrodiuril] 25 mg PO QAM 08/30/19 05/16/20 History Aspirin [Adult Low Dose Aspirin EC] 81 mg PO DAILY 02/01/20 05/16/20 History Cholecalciferol [Vitamin D3 (25 1,000 unit PO DAILY 02/01/20 05/16/20 History Mcg = 1000 Iu)] Metoprolol Tartrate [Lopressor] 12.5 mg PO BID 02/01/20 05/16/20 History Multivitamins, Thera [Multivitamin 1 tab PO DAILY 02/01/20 05/16/20 History (formulary)] Omeprazole [PriLOSEC] 20 mg PO AC-BRKFST 02/01/20 05/16/20 History Potassium Chloride 10 meq PO DAILY 02/01/20 05/16/20 History Sertraline HCl [Zoloft] 25 mg PO DAILY 05/16/20 05/16/20 History Allergies Allergy/AdvReac Type Severity Reaction Status Date / Time adhesive tape Allergy Rash/Hives Verified 05/16/20 07:59 acetaminophen AdvReac Severe Rash/Hives Verified 05/16/20 07:59 [From Tylenol-Codeine #3] codeine AdvReac Severe Rash/Hives Verified 05/16/20 07:59 [From Tylenol-Codeine #3] latex AdvReac Rash/Hives Verified 05/16/20 07:59 Exam Vital Signs Temp Pulse Resp BP Pulse Ox 05/16/20 08:07 97.8 F 78 16 148/74 98 Intake and Output 05/15/20 05/16/20 05/16/20 22:59 06:59 14:59 Other: Weight 52.617 kg Height 5 foot 1-1/2 inch, weight 116 pounds, BMI 21.6. This is a well-developed well-nourished white female who is alert and oriented times 3 in no acute distress. HEENT: Within normal limits. NECK: Supple without mass or thyromegaly. CHEST AND LUNGS: Clear to auscultation. HEART: Regular rate and rhythm. BREASTS: Are without mass or discharge. AXILLARY EXAM: Negative for adenopathy. BACK: Negative for CVA tenderness. ABDOMEN: Soft, nontender, without palpable masses. PELVIC EXAM: External genitalia appears normal with mild atrophy. Vagina appears normal with mild atrophy. There is no evidence of prolapse. Bimanual examination is negative for mass or tenderness. RECTAL EXAM: Rectovaginal exam is negative for mass or tenderness and is negative for occult blood. EXTREMITIES: Nontender. There is a red round skin lesion measuring 5 x 7mm that is flat and nontender on the anterior aspect of the left thigh. She states she noticed this only in this past week. IMPRESSION: 1. 84-year-old menopausal female status post vaginal hysterectomy for benign reasons with normal gynecologic exam. 2. Red left skin lesion over the anterior part of the thigh measuring 5 x 7 mm. PLAN: 1. Pap smears have been discontinued. 2. Self breast awareness was discussed with the patient. 3. Screening mammogram will be done today. 4. Osteoporosis prevention was discussed. I have stressed the importance of adequate calcium, vitamin D and regular exercise. Recommended amounts of calcium and vitamin D were also discussed. I recommended that she do a bone density test in the next year. The order slip was given to the patient for this. 5. He did receive her flu shot this fall. 6. She will follow up with her gelatin powder mixer in the near future for follow-up of the right arm melanoma. She states she will also have the gelatin powder mixer look at the left thigh skin lesion. 7. The patient was advised to return in 1-2 years for her well woman examination. She states she would prefer to return in one year.
--- NOTE | 2020-05-17 11:09 | MM ---
Reason for exam: screening (asymptomatic). Last mammogram was performed 1 year ago. History: Patient is postmenopausal and has history of other cancer at age 74. Family history of breast cancer in paternal grandmother, breast cancer in sister, and breast cancer in paternal aunt. Benign excisional biopsy of the left breast. Took estrogen for 20 years 7 months beginning at age 53. Took progesterone for 20 years 7 months beginning at age 53. Physical Findings: A clinical breast exam by your physician is recommended on an annual basis and results should be correlated with mammographic findings. MG 3D Screening Mammo W/Cad Bilateral CC and MLO view(s) were taken. Prior study comparison: May 11, 2019, bilateral MG 3d screening mammo w/cad. April 01, 2018, bilateral MG 3d screening mammo w/cad. There are scattered fibroglandular densities. Benign appearing bilateral calcifications. There is chronic nodularity in the left breast, stable. No significant changes when compared with prior studies. ASSESSMENT: Benign, BI-RAD 2 RECOMMENDATION: Routine screening mammogram of both breasts in 1 year.
== END | disposition home or self-care (01) ==
LOC: WWCWWP 07:51
PROVIDERS: ATTEND Obstetrics & Gynecology
DX: Z12.31 Encounter for screening mammogram for malignant neoplasm of breast (principal)
CPT/HCPCS: 77063; 77067

== ENCOUNTER → 2021-05-14 | Outpatient (CLI) | payer MEDICARE ==
--- NOTE | 2021-05-14 16:06 | BD ---
EXAMINATION TYPE: Axial Bone Density DATE OF EXAM: 05/14/2021 COMPARISON: NONE CLINICAL HISTORY: Z78.0 POSTMENOPAUSAL Height: 5 FT 1 IN Weight: 121 FRAX RISK QUESTIONS: Alcohol (3 or more units per day): NO Family History (Parent hip fracture): NO Glucocorticoids (More than 3mos): NO (Ex: prednisone, prednisolone, methylprednisolone, dexamethasone, and hydrocortisone). History of Fracture in Adulthood: YES Secondary Osteoporosis: 1. Type 1 Diabetes: NO 2. Hyperthyroidism: NO 3. Menopause before 45: NO 4. Malnutrition: NO 5. Chronic liver disease: NO Rheumatoid Arthritis: NO Current Tobacco Use: NO RISK FACTORS HISTORY OF: Surgery to Spine/Hip(right/left)/Wrist (right/left): NO Family History of Osteoporosis: YES Active: NO Diet low in dairy products/other sources of calcium: NO Postmenopausal woman: AGE 51 Take estrogen and/or progesterone medications: TOOK HRT FOR APPROX 10 YEARS Lost more than 2 inches in height since high school: YES MEDICATIONS: How Long: Additional Medications: BLOOD PRESSURE MEDS, Additional History: EXAM MEASUREMENTS: Bone mineral densitometry was performed using the [employer] System. Bone mineral density as measured about the Lumbar spine is: ----- L1-L4(G/cm2): 1.230 T Score Values are as follows: ----- L2: 0.2 ----- L3: 0.2 ----- L4: 0.9 ----- L1-L4: 0.4 Bone mineral density has: DECREASED -6.8 % since study of: 2018 Bone mineral density about the R hip (g/cm2): 0.873 Bone mineral density about the L hip (g/cm2): 0.939 T Score values are as follows: -----R Neck: -1.2 -----L Neck: -0.7 -----R Total: -0.7 -----L Total: -0.1 Bone mineral density has: DECREASED -6.8 % since study of: 2019 IMPRESSION: Osteopenia (T Score between -2.5 and -1). There is slightly increased risk of fracture and the patient may be considered for treatment. Re-Screen 2-5 years. NOTE: T-SCORE=SD OF THE YOUNG ADULT MEAN.
--- NOTE | 2021-05-16 09:37 | P.PN ---
Progress Note - Text Progress Note Date: 05/16/21 OUTPATIENT FOLLOW-UP NOTE TEST(S)/RESULTS: Bone density test done on 05/14/2021 shows focal osteopenia in the right femur neck. METHOD OF NOTIFICATION: The patient was notified by phone. PATIENT COMMENTS: DIAGNOSIS: Focal osteopenia DISCUSSION: I have stressed the importance of adequate calcium, vitamin D, and regular exercise. She is to try to do this daily. She should also do was necessary to avoid falls, if possible. PLAN: Repeat bone density test in approximately 2-3 years. Her annual well woman visit his approaching later this month.
== END | disposition home or self-care (01) ==
LOC: RADBDWWP 09:02
PROVIDERS: ATTEND Obstetrics & Gynecology
DX: M85.89 Other specified disorders of bone density and structure, multiple sites (principal); Z78.0 Asymptomatic menopausal state
CPT/HCPCS: 77080

== ENCOUNTER → 2021-06-06 | Outpatient (CLI) | payer MEDICARE ==
[2021-06-06 14:27] LABS: HCT 38.9 % (37.2-46.3); HGB 12.8 g/dL (12.0-15.0); MCH 31.4 pg (27.0-32.0); MCHC 32.9 g/dL (32.0-37.0); MCV 95.3 fL (80.0-97.0); Mean Platelet Volume 9.5 fL (9.5-12.2); Platelet Count 307 X 10*3/uL (140-440); RBC 4.08 X 10*6/uL (4.10-5.20); RDW 14.2 % (11.5-14.5); WBC 11.09 X 10*3/uL (4.50-10.00)
[2021-06-06 16:14] LABS: ALT 25 U/L (8-44); AST 26 U/L (13-35); African American GFR (CKD) 93.3 (60.0-200.0); Albumin 4.6 g/dL (3.8-4.9); Albumin/Globulin Ratio 1.92 (1.60-3.17); Alkaline Phosphatase 63 U/L (41-126); BUN/Creat Ratio 28.44 Ratio (12.00-20.00); Blood Urea Nitrogen 19.2 mg/dL (9.0-27.0); Calcium 9.7 mg/dL (8.7-10.3); Chloride 96 mmol/L (96-109); Globulin 2.4 g/dL (1.6-3.3); Glucose 87 mg/dL (70-110); Non-African American GFR(CKD) 80.5 (60.0-200.0); Potassium 3.1 mmol/L (3.5-5.5); Sodium 139 mmol/L (135-145)
[2021-06-06 16:32] LABS: Chol/HDL Ratio 1.73 Ratio; LDL Cholesterol,Calculated 97.6 mg/dL (0.0-131.0)
== END | disposition home or self-care (01) ==
LOC: LABWHC1 09:38
PROVIDERS: ATTEND Family Medicine
DX: I10 Essential (primary) hypertension (principal); M85.80 Other specified disorders of bone density and structure, unspecified site
CPT/HCPCS: 36415; 80053; 80061; 82306; 85027

== ENCOUNTER → 2021-06-06 | Outpatient (CLI) | payer MEDICARE ==
[2021-06-06 08:13] VITALS: BP 118/66; PULSE 97; RESP 18; TEMP 97.7
--- NOTE | 2021-06-06 08:53 | P.HPOB ---
History of Present Illness H&P Date: 06/06/21 Chief Complaint: The patient is here for her routine gynecologic exam and ma mmogram. This is an 85-year-old with an LMP of 1987. The patient is without gynecologic complaints. She is status post vaginal hysterectomy for benign reasons. Review of Systems The patient has gained 6 pounds over the last year. She denies respiratory, cardiac, or G.I. problems. Past Medical History Past Medical History: Cancer, GERD/Reflux, Hypertension, Osteoarthritis (OA), Pneumonia Additional Past Medical History / Comment(s): hx melanoma skin cancer, lymphoma. Focal osteopenia. 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 Past Anesthesia/Blood Transfusion Reactions: No Reported Reaction Additional Past Anesthesia/Blood Transfusion Reaction / Comment(s): . Past Psychological History: Depression Additional Psychological History / Comment(s): lost spouse recently Smoking Status: Former smoker Past Alcohol Use History: Occasional (2 per month) Additional Past Alcohol Use History / Comment(s): Pt started smoking in 1954 and quit in 1964. Past Drug Use History: None Reported Additional History: The patient has been a since 2019 and is not sexually active. - Past Family History Sister(s) Family Medical History: Cancer Additional Family Medical History / Comment(s): Breast cancer. Father Family Medical History: Cancer Additional Family Medical History / Comment(s): Skin cancer. Brother(s) Family Medical History: Cancer Additional Family Medical History / Comment(s): Colon cancer. Mother Family Medical History: No Reported History Additional Family Medical History / Comment(s): Mother was healthy and lived to be 98yrs. Medications and Allergies Home Medications Medication Instructions Recorded Confirmed Type Nitroglycerin Sl Tabs [Nitrostat] 0.4 mg SUBLINGUAL Q5M PRN #25 tab 08/02/18 06/06/21 Rx NIFEdipine [Procardia XL] 30 mg PO QAM 08/30/19 06/06/21 History hydroCHLOROthiazide [Hydrodiuril] 25 mg PO QAM 08/30/19 06/06/21 History Aspirin [Adult Low Dose Aspirin EC] 81 mg PO DAILY 02/01/20 06/06/21 History Cholecalciferol [Vitamin D3 (25 1,000 unit PO DAILY 02/01/20 06/06/21 History Mcg = 1000 Iu)] Metoprolol Tartrate [Lopressor] 12.5 mg PO BID 02/01/20 06/06/21 History Multivitamins, Thera [Multivitamin 1 tab PO DAILY 02/01/20 06/06/21 History (formulary)] Omeprazole [PriLOSEC] 20 mg PO AC-BRKFST 02/01/20 06/06/21 History Potassium Chloride [Potassium 10 meq PO DAILY 02/01/20 06/06/21 History Chloride ER] Calcium Carbonate [Calcium] 600 mg PO DAILY 06/06/21 06/06/21 History predniSONE 10 mg PO DAILY 06/06/21 06/06/21 History Allergies Allergy/AdvReac Type Severity Reaction Status Date / Time adhesive tape Allergy Rash/Hives Verified 06/06/21 08:03 acetaminophen AdvReac Severe Rash/Hives Verified 06/06/21 08:03 [From Tylenol-Codeine #3] codeine AdvReac Severe Rash/Hives Verified 06/06/21 08:03 [From Tylenol-Codeine #3] latex AdvReac Rash/Hives Verified 06/06/21 08:03 Exam Vital Signs Temp Pulse Resp BP Pulse Ox 06/06/21 08:07 97.7 F 97 18 118/66 98 Intake and Output 06/05/21 06/06/21 06/06/21 22:59 06:59 14:59 Other: Weight 55.338 kg Height 5 feet 2 inches, weight 122 pounds, BMI 22.3. This is a well-developed well-nourished white female who is alert and oriented times 3 in no acute distress. HEENT: Within normal limits. NECK: Supple without mass or thyromegaly. CHEST AND LUNGS: Clear to auscultation. HEART: Regular rate and rhythm. BREASTS: Are without mass or discharge. AXILLARY EXAM: Negative for adenopathy. BACK: Negative for CVA tenderness. ABDOMEN: Soft, nontender, without palpable masses. PELVIC EXAM: External genitalia appears normal with mild atrophy. Vagina appears normal with mild to moderate atrophy. There is no evidence of prolapse. Bimanual examination is negative for mass or tenderness. RECTAL EXAM: Rectovaginal exam is negative for mass or tenderness and is negative for occult blood. EXTREMITIES: Nontender. There is a red round skin lesion measuring 5 x 7 mm that is flat and nontender on the anterior aspect of the left thigh. This is unchanged from her last exam one year ago. IMPRESSION: 1. 85-year-old menopausal female who is status post vaginal hysterectomy with normal gynecologic exam. 2. Stable red left anterior thigh skin lesion measuring 5 x 7 mm. 3. Focal osteopenia. PLAN: 1. Pap smears have been discontinued. 2. Self breast awareness was discussed with the patient. We have also discussed symptoms associated with inflammatory breast cancer. 3. Screening mammogram will be done today. 4. Osteoporosis prevention was discussed. I have stressed the importance of adequate calcium, vitamin D and regular exercise. Recommended amounts of calcium and vitamin D were also discussed. Bone density was done on 05/14/2021 which showed focal osteopenia. This will be repeated in 3 years. 5. She has completed her Covid vaccination series. She is contemplating getting a booster. 6. The patient was advised to return in 1-2 years for her well woman examination.
--- NOTE | 2021-06-11 10:55 | MM ---
Reason for exam: screening (asymptomatic). Last mammogram was performed 1 year and 1 month ago. History: Patient is postmenopausal and has history of other cancer at age 74. Family history of breast cancer in paternal grandmother, breast cancer in sister, and breast cancer in paternal aunt. Benign excisional biopsy of the left breast. Took estrogen for 20 years 7 months beginning at age 53. Took progesterone for 20 years 7 months beginning at age 53. Physical Findings: A clinical breast exam by your physician is recommended on an annual basis and results should be correlated with mammographic findings. MG 3D Screening Mammo W/Cad Bilateral CC and MLO view(s) were taken. Prior study comparison: May 16, 2020, bilateral MG 3d screening mammo w/cad. May 11, 2019, bilateral MG 3d screening mammo w/cad. There are scattered fibroglandular densities. No significant changes when compared with prior studies. ASSESSMENT: Negative, BI-RAD 1 RECOMMENDATION: Routine screening mammogram of both breasts in 1 year.
== END ==
LOC: WWCWWP 07:44
PROVIDERS: ATTEND Obstetrics & Gynecology
DX: Z12.31 Encounter for screening mammogram for malignant neoplasm of breast (principal); L98.8 Other specified disorders of the skin and subcutaneous tissue; M85.88 Other specified disorders of bone density and structure, other site; K21.9 Gastro-esophageal reflux disease without esophagitis; I10 Essential (primary) hypertension; M19.90 Unspecified osteoarthritis, unspecified site; F32.A Depression, unspecified; Z87.891 Personal history of nicotine dependence; Z79.899 Other long term (current) drug therapy; Z79.82 Long term (current) use of aspirin; Z91.048 Other nonmedicinal substance allergy status; Z88.6 Allergy status to analgesic agent; Z88.5 Allergy status to narcotic agent; Z91.040 Latex allergy status
CPT/HCPCS: 77063; 77067

== ENCOUNTER → 2022-05-23 | Outpatient (CLI) | payer MEDICARE ==
[2022-05-23 22:52] LABS: African American GFR (CKD) 89.3 (60.0-200.0); Anion Gap 11.2 mmol/L (10.00-18.00); BUN/Creat Ratio 18.18 Ratio (12.00-20.00); Calcium 10.2 mg/dL (8.7-10.3); Carbon Dioxide 26.5 mmol/L (20.0-27.5); Potassium 4.5 mmol/L (3.5-5.5)
== END | disposition home or self-care (01) ==
LOC: LABWHC1 13:31
PROVIDERS: ATTEND Family Medicine
DX: I10 Essential (primary) hypertension (principal)
CPT/HCPCS: 36415; 80048

== ENCOUNTER → 2022-06-25 | Outpatient (CLI) | payer MEDICARE ==
--- NOTE | 2022-06-28 08:45 | MM ---
Reason for Exam: Screening (asymptomatic). Last mammogram was performed 1 year(s) and 1 month(s) ago. Patient History: Menarche at age 14. First Full-Term at age 26. Hysterectomy at age 72. Postmenopausal. Other cancer, age 74. Estrogen for 20 years, 7 months, from age 53 until age 73. Progesterone for 20 years, 7 months, from age 53 until age 73. Benign Excisional Biopsy on the left side. Paternal grandmother had breast cancer. Paternal aunt had breast cancer. Sister had breast cancer. Risk Values: Karrie 5 year model risk: 3.0%. NCI Lifetime model risk: 3.0%. Prior Study Comparison: 05/11/2019 Bilateral Screening Mammogram, [facility]. 05/16/2020 Bilateral Screening Mammogram, [facility]. 06/06/2021 Bilateral Screening Mammogram, [facility]. Tissue Density: There are scattered fibroglandular densities. Findings: Analyzed By CAD. Focal asymmetry or prominent tissue in the posterior outer left breast is unchanged from 2019 mammogram presumed benign. There are a few small benign-appearing round calcifications bilaterally redemonstrated. There is no suspicious new group of microcalcifications or new suspicious mass in either breast. Overall Assessment: Benign, BI-RAD 2 Management: Screening Mammogram of both breasts in 1 year. A clinical breast exam by your physician is recommended on an annual basis and results should be correlated with mammographic findings. Electronically signed and approved by: Олег Harrington M.D.
== END | disposition home or self-care (01) ==
LOC: RADMAMWWP 14:53
PROVIDERS: ATTEND Family Medicine
DX: Z12.31 Encounter for screening mammogram for malignant neoplasm of breast (principal); Z78.0 Asymptomatic menopausal state; Z80.3 Family history of malignant neoplasm of breast; Z98.890 Other specified postprocedural states
CPT/HCPCS: 77063; 77067

== ENCOUNTER → 2023-08-22 | Outpatient (CLI) | payer MEDICARE ==
--- NOTE | 2023-08-22 15:05 | CT ---
EXAMINATION TYPE: CT humerus RT wo con CT DLP: 764 mGycm, Automated exposure control for dose reduction was used. DATE OF EXAM: 08/22/2023 1:47 PM COMPARISON: None CLINICAL INDICATION:Female, 88 years old with history of M79.601 PAIN IN RIGHT ARM; PHH, h/o melanoma of right humerus with removal, pt c/o pain in upper right arm TECHNIQUE: Axial images were obtained of the CT humerus RT wo con, Additional coronal and sagittal re formatted images and soft tissue and bone window were obtained for review. Contrast used: mL of , (None if empty) Oral contrast used: (None if empty) FINDINGS: Mild degeneration changes of the shoulder and the right elbow with osteophyte formation. No evidence for soft tissue mass. There is no evidence of fracture, subluxation, or dislocation. No si gnificant soft tissue swelling or joint effusion is identified. No focal muscular atrophy or edema is identified. No radiopaque foreign body identified. IMPRESSION: 1. No evidence of fracture. 2. Mild degeneration changes of the right shoulder. 3. No evidence or soft tissue mass.
== END | disposition home or self-care (01) ==
LOC: RADCTMAIN 13:22
PROVIDERS: ATTEND Family Medicine
DX: M19.011 Primary osteoarthritis, right shoulder (principal); Z85.820 Personal history of malignant melanoma of skin

== ENCOUNTER 2024-11-25 11:13 | Emergency (ER) | payer MEDICARE ==
[2024-11-25 11:27] VITALS: PULSE 75; RESP 16
--- NOTE | 2024-11-25 12:51 | ED ---
General Adult HPI - General Source: patient, family, RN notes reviewed Mode of arrival: wheelchair Limitations: no limitations - History of Present Illness Onset/Timin -: minutes(s) Time: 09:00 Location: right, lower extremity Radiation: non-radiation Worsens with: movement Associated Symptoms: weakness <Lucian Laguna - Last Filed: 11/29/24 10:18> <Josué Kothari - Last Filed: 11/29/24 21:54> - General Chief complaint: Neuro Symptoms/Deficit Stated complaint: Right Leg Issues Time Seen by Provider: 11/25/24 11:21 - History of Present Illness Initial comments: This is an 89-year-old female presenting with son for difficulty walking since 0900. Patient states she suffered a fall several days ago striking her head and right hip with no medical intervention performed at that time. Denies loss of consciousness, neck pain/injury patient states she is leaning to the right, making walking difficult with associated brain fog. Denies unilateral paresthesia, hemiplegia, dysphasia. Denies headache, vision changes, neck pain. (Lucian Laguna) - Related Data Home Medications Medication Instructions Recorded Confirmed Cholecalciferol [Vitamin D3 (125 125 mcg PO DAILY@1800 11/25/24 11/25/24 Mcg = 5000 Iu)] Metoprolol Succinate (ER) [Toprol 100 mg PO DAILY@1800 11/25/24 11/25/24 Xl] Multivit-Min/Iron/Folic/Lutein 1 tab PO DAILY@1800 11/25/24 11/25/24 [Centrum Silver Women Tablet] Olmesartan/Hydrochlorothiazide 1 cap PO DAILY@1800 11/25/24 11/25/24 [Olmesartan-Hctz 40-12.5 mg Tab] Rosuvastatin Calcium 5 mg PO DAILY@1800 11/25/24 11/25/24 Allergies Allergy/AdvReac Type Severity Reaction Status Date / Time adhesive tape Allergy Rash/Hives Verified 11/25/24 14:44 acetaminophen AdvReac Severe Rash/Hives Verified 11/25/24 14:44 [From Tylenol-Codeine #3] codeine AdvReac Severe Rash/Hives Verified 11/25/24 14:44 [From Tylenol-Codeine #3] latex AdvReac Rash/Hives Verified 11/25/24 14:44 Review of Systems ROS Other: All systems not noted in ROS Statement are negative. <Lucian Laguna - Last Filed: 11/29/24 10:18> ROS Other: All systems not noted in ROS Statement are negative. <Josué Kothari - Last Filed: 11/29/24 21:54> ROS Statement: Those systems with pertinent positive or pertinent negative responses have been documented in the HPI. Past Medical History Past Medical History: Cancer, GERD/Reflux, Hypertension, Osteoarthritis (OA), Pneumonia Additional Past Medical History / Comment(s): hx melanoma skin cancer, lymphoma. Focal osteopenia. 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 Past Anesthesia/Blood Transfusion Reactions: No Reported Reaction Additional Past Anesthesia/Blood Transfusion Reaction / Comment(s): . Past Psychological History: No Psychological Hx Reported Smoking Status: Former smoker Past Alcohol Use History: Occasional Past Drug Use History: None Reported - Past Family History Sister(s) Family Medical History: Cancer Additional Family Medical History / Comment(s): Breast cancer. Father Family Medical History: Cancer Additional Family Medical History / Comment(s): Skin cancer. Brother(s) Family Medical History: Cancer Additional Family Medical History / Comment(s): Colon cancer. Mother Family Medical History: No Reported History Additional Family Medical History / Comment(s): Mother was healthy and lived to be 98yrs. <Lucian Laguna - Last Filed: 11/29/24 10:18> General Exam Limitations: no limitations General appearance: alert, in no apparent distress Head exam: Present: atraumatic, normocephalic, normal inspection Eye exam: Present: normal appearance, PERRL, EOMI, other (HINTS exams negative). Absent: scleral icterus, conjunctival injection, nystagmus, periorbital swelling ENT exam: Present: normal exam, normal oropharynx, mucous membranes moist, TM's normal bilaterally Neck exam: Present: normal inspection. Absent: tenderness, meningismus, lymphadenopathy Respiratory exam: Present: normal lung sounds bilaterally. Absent: respiratory distress, wheezes, rales, rhonchi, stridor, accessory muscle use, decreased breath sounds, prolonged expiratory Cardiovascular Exam: Present: regular rate, normal rhythm, normal heart sounds. Absent: systolic murmur, diastolic murmur, rubs, gallop, clicks GI/Abdominal exam: Present: soft, normal bowel sounds. Absent: distended, tenderness, guarding, rebound, rigid Extremities exam: Present: full ROM, tenderness (Positive minor tenderness of right lateral hip without crepitus or deformity), normal capillary refill, other (Bilateral upper and lower extremity neurovascular and motor function intact.). Absent: pedal edema, joint swelling, calf tenderness Back exam: Present: normal inspection. Absent: vertebral tenderness Neurological exam: Present: alert, oriented X3, CN II-XII intact, other ([place] stroke and cerebellar testing unremarkable) Psychiatric exam: Present: normal affect, normal mood Skin exam: Present: warm, dry, intact, normal color. Absent: rash <Lucian Laguna - Last Filed: 11/29/24 10:18> Course Vital Signs 11/25/24 11/25/24 11:25 16:30 Temperature 98.1 F 97.0 F L Pulse Rate 75 75 Respiratory 16 16 Rate Blood Pressure 150/78 146/78 O2 Sat by Pulse 99 99 Oximetry Medical Decision Making - Lab Data Result diagrams: 11/25/24 13:10 11/25/24 13:10 <Luican Laguna - Last Filed: 11/29/24 10:18> - Lab Data Result diagrams: 11/25/24 13:10 11/25/24 13:10 <Josué Kothari - Last Filed: 11/29/24 21:54> - Medical Decision Making Was pt. sent in by a medical professional or institution (, PA, FUEL CONVERSION TECHNICIAN, urgent care, hospital, or penitentiary...) When possible be specific @ -No Did you speak to anyone other than the patient for history (EMS, parent, family, police, friend...)? What history was obtained from this source @ -No Did you review nursing and triage notes (agree or disagree)? Why? @ -I reviewed and agree with nursing and triage notes Were old charts reviewed (outside hosp., previous admission, EMS record, old EKG, old radiological studies, urgent care reports/EKG's, penitentiary records)? Report findings @ -No old charts were reviewed Differential Diagnosis (chest pain, altered mental status, abdominal pain women, abdominal pain men, vaginal bleeding, weakness, fever, dyspnea, syncope, headache, dizziness, GI bleed, back pain, seizure, CVA, palpatations, mental health, musculoskeletal)? @ -Differential Musculoskeletal Muscular strain, contusion, ligament sprain, fracture, arthritis, septic arthritis, bursitis, cellulitis, muscle spasm, nerve compression, DVT, arterial occlusion, herpes zoster, electrolyte abnormality, tumor.... This is not meant to be in all inclusive list differential CVA Ischemic stroke, hemorrhagic stroke, brain tumor, atypical migraine, Wernicke's encephalopathy, seizure, multiple sclerosis, meningitis, encephalitis, hypoglycemia, Guillain-Ling, electrolytes disturbance, myasthenia gravis.... This is not meant to be an all-inclusive list EKG interpreted by me (3pts min.). @ -Not done X-rays interpreted by me (1pt min.). @ -None done CT interpreted by me (1pt min.). @ -Brain CT shows no acute bleed or mass effect with bilateral remote lacunar infarcts of the bilateral basal ganglia if CT shows no evidence of acute trauma, fracture or dislocation. Lumbar spine CT shows multilevel DDD, far right lateral disc herniation L5-S1 with severe neural foraminal stenosis. Severe facet arthropathy in the lower lumbar spine and multilevel neural foraminal stenosis. U/S interpreted by me (1pt. min.). @ -None done What testing was considered but not performed or refused? (CT, X-rays, U/S, labs)? Why? @ -None What meds were considered but not given or refused? Why? @ -None Did you discuss the management of the patient with other professionals (professionals i.e. Dr., PA, FUEL CONVERSION TECHNICIAN, lab, RT, psych nurse, forensic social worker, screwhead stoner and polisher, teacher, chief fundraising officer, business case analyst)? Give summary @ -No Was smoking cessation discussed for >3mins.? @ -No Was critical care preformed (if so, how long)? @ -No Were there social determinants of health that impacted care today? How? (Homelessness, low income, unemployed, alcoholism, drug addiction, transportation, low edu. Level, literacy, decrease access to med. care, residential, rehab)? @ -No Was there de-escalation of care discussed even if they declined (Discuss DNR or withdrawal of care, Hospice)? DNR status @ -No What co-morbidities impacted this encounter? (DM, HTN, Smoking, COPD, CAD, C ancer, CVA, ARF, Chemo, Hep., AIDS, mental health diagnosis, sleep apnea, morbid obesity)? @ -None Was patient admitted / discharged? Hospital course, mention meds given and route, prescriptions, significant lab abnormalities, going to OR and other pertinent info. @ -Physical exam performed by Dr. Kothari revealed no concerning findings for CVA, with possible indications for right hip/lower back injury. Lab work generally unremarkable with hyponatremia [address] shows no acute bleed or mass effect with bilateral remote lacunar infarcts of the bilateral basal ganglia if CT shows no evidence of acute trauma, fracture or dislocation. Lumbar spine CT shows multilevel DDD, far right lateral disc herniation L5-S1 with severe neural foraminal stenosis. Severe facet a rthropathy in the lower lumbar spine and multilevel neural foraminal stenosis. Patient offered observation admission for further imaging with MRI, which patient declined. Advised follow-up with orthopedics for ongoing evaluation, workup and treatment regarding lumbar spine degeneration. Discussed patient with Dr. Kothari. Undiagnosed new problem with uncertain prognosis? @ -No Drug Therapy requiring intensive monitoring for toxicity (Heparin, Nitro, Insulin, Cardizem)? @ -No Were any procedures done? @ -No Diagnosis/symptom? @ -Lumbar spine DDD and foraminal stenosis Acute, or Chronic, or Acute on Chronic? @ -Acute Uncomplicated (without systemic symptoms) or Complicated (systemic symptoms)? @ -Uncomplicated Side effects of treatment? @ -No Exacerbation, Progression, or Severe Exacerbation? @ -Progression Poses a threat to life or bodily function? How? (Chest pain, [place], [place], pneumonia, PE, COPD, DKA, ARF, appy, cholecystitis, CVA, Diverticulitis, Homicidal, Suicidal, threat to staff... and all critical care pts) @ -No (Lucian Laguna) I did evaluate the patient patient is an NIH of 0. Symptoms seem to be musculoskeletal in nature she is having hard time bearing weight on the right lower extremity secondary to pain. (Josué Kothari) - Lab Data Lab Results 11/25/24 11/25/24 11/25/24 Range/Units 13:10 13:10 13:10 WBC 5.70 (4.50-10.00) 10*3/uL RBC 4.16 (4.10-5.20) 10*6/uL Hgb 13.3 (12.0-15.0) g/dL Hct 38.3 (37.2-46.3) % MCV 92.1 (80.0-97.0) fL MCH 32.0 (27.0-32.0) pg MCHC 34.7 (32.0-37.0) g/dL Plt Count 243 (140-440) 10*3/uL MPV 9.4 L (9.5-12.2) fL Immature Gran % (Auto) 0.2 % Neutrophils % 59.6 % Lymphocytes % 28.1 % Monocytes % 9.8 % Eosinophils % 1.4 % Basophils % 0.9 % Immature Gran # 0.01 (0.00-0.04) 10*3/uL Neutrophils # 3.40 (1.80-7.70) 10*3/uL Lymphocytes # 1.60 (0.90-5.00) 10*3/uL Monocytes # 0.56 (0.20-1.00) 10*3/uL Eosinophils # 0.08 (0.04-0.35) 10*3/uL Basophils # 0.05 (0.00-0.10) 10*3/uL Sodium 133 L (137-145) mmol/L Potassium 4.2 (3.5-5.1) mmol/L Chloride 97 L (98-107) mmol/L Carbon Dioxide 27 (22-30) mmol/L Anion Gap 9 mmol/L BUN 20 H (7-17) mg/dL Creatinine 0.60 (0.52-1.04) mg/dL Est GFR (CKD-EPI)AfAm >90 (>60 ml/min/1.73 sqM) Est GFR (CKD-EPI)NonAf 82 (>60 ml/min/1.73 sqM) Glucose 86 (74-99) mg/dL Calcium 10.1 (8.4-10.2) mg/dL Total Bilirubin 0.7 (0.2-1.3) mg/dL AST 36 (14-36) U/L ALT 27 (4-34) U/L Alkaline Phosphatase 75 (38-126) U/L Total Protein 7.1 (6.3-8.2) g/dL Albumin 4.3 (3.5-5.0) g/dL Urine Color Colorless Urine Appearance Clear (Clear) Urine pH 7.5 (5.0-8.0) Ur Specific [place] 1.008 (1.001-1.035) Urine Protein Negative (Negative) Urine Glucose (UA) Negative (Negative) Urine Ketones Negative (Negative) Urine Blood Negative (Negative) Urine Nitrite Negative (Negative) Urine Bilirubin Negative (Negative) Urine Urobilinogen <2.0 (<2.0) mg/dL Ur Leukocyte Esterase Small H (Negative) Urine RBC 1 (0-5) /hpf Urine WBC 8 H (0-5) /hpf Ur Squamous Epith Cells <1 (0-4) /hpf Disposition Is patient prescribed a controlled substance at d/c from ED?: No Time of Disposition: 16:05 <Lucian Laguna - Last Filed: 11/29/24 10:18> <Josué Kothari - Last Filed: 11/29/24 21:54> Clinical Impression: Lumbar disc herniation with radiculopathy, Neuroforaminal stenosis of lumbosacral spine Disposition: HOME SELF-CARE Condition: Fair Instructions (If sedation given, give patient instructions): Lumbar Disc Herniation (ED), Lumbar Spinal Stenosis (ED) Additional Instructions: Ibuprofen every 8 hours as needed for pain. Follow-up with orthospine for ongoing evaluation management of hip pain and difficulty walking. Referrals: James Mcconnell MD [Primary Care Provider] - 1-2 days [facility] [Provider Group] - 1-2 days [facility] [Provider Group] - 1-2 days
[2024-11-25 13:33] LABS: Basophils # (A) 0.05 10*3/uL (0.00-0.10); Basophils % (A) 0.9 %; Eosinophils # (A) 0.08 10*3/uL (0.04-0.35); Eosinophils % (A) 1.4 %; HCT 38.3 % (37.2-46.3); HGB 13.3 g/dL (12.0-15.0); Lymphocytes % (A) 28.1 %; MCHC 34.7 g/dL (32.0-37.0); MCV 92.1 fL (80.0-97.0); Mean Platelet Volume 9.4 fL (9.5-12.2); Monocytes # (A) 0.56 10*3/uL (0.20-1.00); Monocytes % (A) 9.8 %; Neutrophils % (A) 59.6 %; Platelet Count 243 10*3/uL (140-440); RBC 4.16 10*6/uL (4.10-5.20); RDW 13.2 % (11.5-14.5)
[2024-11-25 13:44] LABS: ALT 27 U/L (4-34); AST 36 U/L (14-36); African American GFR (CKD) >90 (>60 ml/min/1.73 sqM); Albumin 4.3 g/dL (3.5-5.0); Alkaline Phosphatase 75 U/L (38-126); Anion Gap 9 mmol/L; Blood Urea Nitrogen 20 mg/dL (7-17); Calcium 10.1 mg/dL (8.4-10.2); Carbon Dioxide 27 mmol/L (22-30); Chloride 97 mmol/L (98-107); Glucose 86 mg/dL (74-99); Non-African American GFR(CKD) 82 (>60 ml/min/1.73 sqM); Potassium 4.2 mmol/L (3.5-5.1); Sodium 133 mmol/L (137-145); Total Bilirubin 0.7 mg/dL (0.2-1.3); Total Protein 7.1 g/dL (6.3-8.2)
[2024-11-25 14:05] LABS: Appearance,Urine Clear (Clear); Bilirubin,Urine Negative (Negative); Blood,Urine Negative (Negative); Color,Urine Colorless; Glucose,Urine (UA) Negative (Negative); Ketones,Urine Negative (Negative); Leukocyte Esterase,Urine Small (Negative); Nitrite,Urine Negative (Negative); PH, Urine 7.5 (5.0-8.0); Protein,Urine Negative (Negative); RBC,Urine 1 /hpf (0-5); Specific Gravity,Urine 1.008 (1.001-1.035); Squamous Epithelial Cell,Urine <1 /hpf (0-4); Urobilinogen,Urine <2.0 mg/dL (<2.0); WBC,Urine 8 /hpf (0-5)
--- NOTE | 2024-11-25 15:08 | CT ---
EXAMINATION TYPE: CT brain wo con DATE OF EXAM: 11/25/2024 COMPARISON: None CLINICAL INDICATION: Female, 89 years old with history of Extremity deficit, hip issue; PHH, BRAIN FO G AND WEAKNESS CT DLP: 1167.4 mGycm Automated exposure control for dose reduction was used. Findings: The ventricles, basal cisterns and sulci over convexities are moderately enlarged consistent with mod erate generalized atrophy. There is marked decreased density in the periventricular white matter cons istent with marked chronic ischemic white matter demyelination. There is a remote lacunar infarct in the left basal ganglia. There is a tiny remote lacunar infarct i n the right basal ganglia. There is no mass effect or shift of the midline structures. There is no acute intra or extra-axial hemorrhage. The posterior fossa including the brainstem, fourth ventricle and cerebellar pontine angles appear no rmal. Intraorbital contents appear normal and symmetric. There are marked chronic inflammatory changes in the left maxillary sinus. The mastoid air cells are well aerated. The calvarium is intact. IMPRESSION: 1. No acute bleed or mass effect. 2. Moderate to marked senescent changes 3. 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 [facility], , 11/25/2024 3:06 PM
--- NOTE | 2024-11-25 15:11 | CT ---
EXAMINATION TYPE: CT hip RT wo con DATE OF EXAM: 11/25/2024 COMPARISON: None CLINICAL INDICATION: Female, 89 years old with history of Extremity deficit, hip issue; PHH, Extremit y deficit, RT HIP ISSUE. CT DLP: 1125.4 mGycm Automated exposure control for dose reduction was used. FINDINGS: The right hip and hemipelvis is intact without fracture, dislocation or focal intraosseous abnormalit y. Hip joint space is well-preserved. There is mild hypertrophic spurring indicating mild osteoarthri tis. The periarticular soft tissues are unremarkable IMPRESSION: NO EVIDENCE OF ACUTE TRAUMA TO THE RIGHT HIP OR RIGHT HEMIPELVIS. [facility], Workstation: [facility], 11/25/2024 3:08 PM
--- NOTE | 2024-11-25 15:18 | CT ---
EXAMINATION TYPE: CT lumbar spine wo con DATE OF EXAM: 11/25/2024 2:56 PM COMPARISON: None. CLINICAL INDICATION: Female, 89 years old with history of Extremity deficit, hip issue; PHH, Extremit y deficit, RT HIP ISSUE. TECHNIQUE: Unenhanced CT of the lumbar spine was performed. Bone and soft tissue window settings are submitted as well as coronal and sagittal reconstructions. CT DLP: 1125.[address] CTDI: mGy Automated exposure control for dose reduction was used. FINDINGS: The lumbar vertebral segments are normal in height and there is no acute fracture. There is a slight anterolisthesis of L4 on L5. There is moderate disc space narrowing, spondylosis and vacuum phenomena at the T12/L1, L1/L2, L2/L3 levels indicating mild to moderate degenerative disease. There is mild disc space narrowing of the L4 -5 disc consistent with mild degenerative disc disease. There is marked osteoarthritis of the facet joints at the L3-4, L4-5 and L5-S1 levels. Secondary to facet hypertrophy, circumferential disc bulge and thickening ligamentum flavum, there is mild spinal stenosis at the L3-4 level. There is a far right lateral disc herniation at the L5-S1 level resulting in severe neural foraminal stenosis. There is mild neural foraminal stenosis at the L2-3, L3-4 and L5-S1 level on the left. Ther e is moderate neural foraminal stenosis at the L4-5 level on the left. There is mild neural foraminal stenosis at the L2-3, L3-4 and L4-5 levels on the right. IMPRESSION: 1. Multilevel degenerative disc disease as described above. 2. Far right lateral disc herniation at the L5-S1 level resulting in severe L5-S1 neural foraminal st enosis on the right. 3. Severe facet arthropathy in the lower lumbar spine. 4. Additional multilevel neural foraminal stenosis as described above. 5. Mild spinal stenosis at the L3-4 level. [facility], , 11/25/2024 3:16 PM
[2024-11-25 16:31] VITALS: BP 146/78; TEMP 97
== END 2024-11-25 16:31 | disposition home or self-care (01) ==
LOC: EC 11:13
DX: M51.16 Intervertebral disc disorders with radiculopathy, lumbar region (principal); M48.07 Spinal stenosis, lumbosacral region; Z87.891 Personal history of nicotine dependence; Z88.5 Allergy status to narcotic agent; Z88.6 Allergy status to analgesic agent; Z91.09 Other allergy status, other than to drugs and biological substances; Z91.040 Latex allergy status
CPT/HCPCS: 36415; 70450; 72131; 80053; 81001; 85025; 99284